=== PATIENT | female | born 1940 | race Caucasian/White ===

== ENCOUNTER 2021-10-18 15:46 | Inpatient (IN) ==
[2021-10-18 17:49] LABS: Basophils # (auto) 0.02 K/uL (0-0.2); Basophils % (auto) 0.3 %; Eosinophils # (auto) 0.11 K/uL (0-0.5); Eosinophils % (auto) 1.5 %; Hematocrit (blood only) 34.7 % (37-47); Immature Granulocytes # (auto) 0.02 K/uL (0.00-0.02); Immature Granulocytes % (auto) 0.3 %; Lymphocytes # (auto) 1.81 K/uL (1.2-3.4); Lymphocytes % (auto) 23.9 %; Mean Corpuscular Hemoglobin 31.8 pg (25-34); Mean Corpuscular Hgb Conc 34.6 g/dL (32-36); Mean Platelet Volume 10.3 fL (7.4-10.4); Monocytes # (auto) 0.74 K/uL (0.11-0.59); Monocytes % (auto) 9.8 %; Neutrophils # (auto) 4.87 K/uL (1.4-6.5); Neutrophils % (auto) 64.2 %; Platelet Count 261 K/uL (130-400); RDW Coefficient of Variation 13.2 % (11.5-14.5); RDW Standard Deviation 44.2 fL (36.4-46.3); Red Blood Count 3.77 M/uL (4.2-5.4); White Blood Count 7.57 K/uL (4.8-10.8)
[2021-10-18 18:55] LABS: Appearance Urine Clear (Clear); Bilirubin Urine Negative (Negative); Blood Urine Negative (Negative); Color Urine Yellow; Glucose Urine UA Negative (Negative); Ketones Urine Negative (Negative); Leukocyte Esterase Urine Negative (Negative); Nitrite Urine Negative (Negative); Protein Urine Negative (Negative); Specific Gravity Urine 1.008 (1.000-1.030); Urobilinogen Urine Negative (Negative); pH Urine 7.5 (4.5-7.5)
[2021-10-18 19:02] LABS: Alanine Aminotransferase 20 U/L (7-52); Albumin Globulin Ratio 1.1 (0.9-2); Albumin Level 3.5 gm/dl (3.4-5.0); Alkaline Phosphatase 82 U/L (34-104); Anion Gap 6 (3-11); BUN Creatinine Ratio 8.1 (10-20); Bilirubin,Total 0.7 mg/dl (0.2-1.0); Blood Urea Nitrogen 5 mg/dl (6-23); Calcium 8.9 mg/dl (8.5-10.1); Carbon Dioxide 27 mmol/L (21-32); Chloride 101 mmol/L (98-107); Creatinine Clr Calc Pharmacy 62.3 ml/min; Est GFR (African American) 99.4 ml/min; Est GFR (Non-African American) 85.8 ml/min; Globulin 3.1 gm/dl (2.5-4.0); Glucose 91 mg/dl (70-99(Fasting)); Lipase 15 U/L (11-82); Sodium 134 mmol/L (136-145); Total Protein 6.6 gm/dl (6.0-8.3)
[2021-10-18] MEDS ORDERED: OPTIRAY 320 100ml IV ONE (19:56)
[2021-10-18 20:19] LABS: Potassium 4.1 mmol/L (3.5-5.1)
--- NOTE | 2021-10-18 20:24 | CT Scan Report ---
CT SCAN OF THE ABDOMEN AND PELVIS WITH IV CONTRAST CLINICAL HISTORY: Generalized abdominal pain. Nausea and vomiting. Diarrhea. Reported history of co shane cancer. COMPARISON STUDY: No priors. TECHNIQUE: Following the IV administration of 94 cc of Optiray 320, CT scan of the abdomen and pelvi s is performed from the lung bases to the proximal femora. Images are reviewed in the axial, sagittal , and coronal planes. IV contrast was administered without complication. A dose lowering technique wa s utilized adhering to the principles of ALARA. CT DOSE: 291.06 mGy.cm FINDINGS: Lung bases: The heart is top normal in size and without pericardial effusion. There are coronary henrik ry calcifications. The lung bases are clear noting dependent atelectasis. Liver: The contrast-enhanced liver is normal in size, contour, and attenuation. There is no intrahepa tic biliary ductal dilatation. The hepatic veins and portal veins are patent. Gallbladder: Surgically absent noting clips in the gallbladder fossa. Spleen: Normal in size and attenuation. Pancreas: Moderately atrophic and grossly unremarkable. Adrenal glands: Unremarkable. Kidneys: The contrast enhanced kidneys are normal in size and without hydronephrosis. The kidneys enh ance symmetrically. There are least 2 nonobstructing right renal calculi which measure up to 6 mm. Abdominal vasculature: The abdominal aorta is normal in course and caliber noting mild to moderate at herosclerotic calcification. Bowel: There is postoperative change from right-sided colon resection with ileocolic anastomosis. The proximal small bowel loops are distended and fluid-filled measuring up to 3.0 cm. The distal small b owel is decompressed, and the appearance is consistent with a small bowel obstruction. There is likel y a transition point in the central pelvis above the bladder on image #330. This may be on the basis of adhesions. No focally thick walled bowel loops are identified. There is no pneumatosis intestinali s or portal venous gas. There is moderate colonic diverticulosis without CT evidence of acute diverti culitis. The appendix is not identified and may be surgically absent. Peritoneum: No intraperitoneal free air is identified. Trace interloop fluid is seen in the midabdome n and there is trace free fluid in the pelvis. A midline surgical scar is noted. Lymphadenopathy: There are enlarged and centrally necrotic-appearing mesenteric lymph nodes in the mi d to right lower quadrant. The largest node is seen on image #242 and measures 1.5 x 1.2 cm. Addition al nodes are seen on images #250, #251, and #256. Pelvic viscera: The bladder is mildly distended but otherwise normal in appearance. The uterus is trevor gically absent. No adnexal lesion is seen. Skeletal structures: The skeletal structures are heterogeneously osteopenic. There is mild lumbosacra l spondylosis. No lytic or blastic lesions are seen. IMPRESSION: 1. There is postoperative change from right-sided colon resection with ileocolic anastomosis. 2. Findings are consistent with a small bowel obstruction. A transition point is suspected in the pel vis and this is likely on the basis of adhesions. 3. There is trace interloop fluid and a small amount of free fluid in the pelvis. 4. No intraperitoneal free air is identified. There is no pneumatosis intestinalis or portal venous g as. 5. There are pathologically enlarged and centrally necrotic-appearing mesenteric lymph nodes in the l ower abdomen. These are pathologically indeterminant but concerning for metastatic disease given the patient's oncological history. Follow-up with the patient's oncologist is recommended. 6. Additional findings as above. ACT 112: Positive. There are findings on this exam that require communication between the performing entity and the patient following Patient Test Result Information Act ([place] Act 112) guidelines. Electronically signed by: Ilia Blandon M.D. 10/18/2021 8:22 PM
--- NOTE | 2021-10-18 20:38 | Emergency Department Note ---
History of Present Illness General Chief Complaint: Abdominal Pain Stated Complaint: ABDOMINAL PAIN, VOMITING, NAUSEA Time Seen by Provider: 10/18/21 18:59 History of Present Illness Provider Complaint: abdominal pain Onset (ago): 1 month(s) Pain Consistency: intermittent Location: diffuse Severity: moderate Maximum Pain Intensity: 5 Current Pain Intensity: 5 Quality: + stabbing, + aching, + sharp and + dull Relieved By: + nothing Exacerbated By: + nothing Context: + history of similar episodes (Patient states her symptoms have been going on for the last month and daughter states her symptoms have been on and off for the last 6 months since she had surgery a colectomy done at [facility] for colon cancer); no foreign travel, no possible food poisoning, no sick contacts, no recent antibiotic use or no recent injury Associated Symptoms: + nausea and + vomiting; no diarrhea, no fever, no chills, no constipation, no dysuria, no hematemesis, no hematochezia, no melena, no hematuria, no anorexia, no syncope, no headache, no neck pain, no back pain, no chest pain, no weakness, no breathing difficulty and no numbness Related Data Patient Confirmed : No Home Medications Medication Instructions Recorded Confirmed Type amoxicillin 875 mg-potassium 1 tab PO [facility] 10/18/21 10/18/21 History clavulanate 125 mg tablet cholestyramine (with sugar) 4 gram 1 ea PO [facility] 10/18/21 10/18/21 History powder for susp in a packet lisinopril 10 mg tablet 10 mg PO QAM 10/18/21 10/18/21 History magnesium oxide 400 mg (241.3 mg 400 mg PO Q12 10/18/21 10/18/21 History magnesium) tablet metoclopramide HCl 5 mg tablet 5 mg PO AC 10/18/21 10/18/21 History ondansetron 4 mg disintegrating 4 mg PO Q8 PRN 10/18/21 10/18/21 History tablet pantoprazole 40 mg tablet,delayed 40 mg PO QAM 10/18/21 10/18/21 History release potassium chloride 20 mEq 20 meq PO TIDM 10/18/21 10/18/21 History tablet,extended release(part/cryst) sucralfate 1 gram tablet 1 g PO QID 10/18/21 10/18/21 History Allergies Allergy/AdvReac Type Severity Reaction Status Date / Time No Known Allergies Allergy Unverified 10/18/21 22:13 Past Med/Surg History Medical History Colon cancer HTN (hypertension) Prolonged Q-T interval on ECG Surgical History H/O colectomy Social History Smoking Status: Former smoker Feels Safe at Home: Yes Review of Systems A total of 10 systems reviewed and were otherwise negative Physical Exam Vital Signs: Vital Signs - 24 hr 10/18/21 15:58 10/18/21 19:15 10/18/21 20:09 Temperature 36.7 C Temperature Source Temporal Artery Sc an Pulse Rate 80 Pulse Rate [Right] 78 64 Pulse Rhythm [Righ t] Regular Pulse Strength [Ri ght] Normal Respiratory Rate 20 18 16 Respiratory Effort / Characteristics Non-Labored Non-Labored Sponta neous Non-Labored Sponta neous Respiratory Depth Normal Normal Normal Blood Pressure 119/79 Blood Pressure [Ri ght Arm] 183/82 H 180/81 H Blood Pressure Veronica n 92 Blood Pressure Veronica n [Right Arm] 115 114 Blood Pressure Pos ition Sitting Blood Pressure Pos ition [Right Arm] Lying Pulse Oximetry 97 97 96 Oxygen Delivery Me thod Room Air Room Air Room Air Sepsis Recent Feve r Within 48 Hours No Sepsis New/Unexpla ined Change in Men payam Status N/A Sepsis Action Take n by Nursing No Action Required 10/18/21 22:26 Temperature Temperature Source Pulse Rate Pulse Rate [Right] 65 Pulse Rhythm [Righ t] Regular Pulse Strength [Ri ght] Normal Respiratory Rate 16 Respiratory Effort / Characteristics Non-Labored Sponta neous Respiratory Depth Normal Blood Pressure Blood Pressure [Ri ght Arm] 159/89 H Blood Pressure Veronica n Blood Pressure Veronica n [Right Arm] 112 Blood Pressure Pos ition Blood Pressure Pos ition [Right Arm] Sitting Pulse Oximetry 96 Oxygen Delivery Me thod Room Air Sepsis Recent Feve r Within 48 Hours Sepsis New/Unexpla ined Change in Men payam Status Sepsis Action Take n by Nursing Physical Exam: Physical Exam GENERAL: She is oriented to person, place, and time. She appears well-developed and well-nourished. She does not appear distressed. HENT: Exam performed. -Head: Normocephalic and atraumatic. -Right Ear: External ear normal. No mastoid tenderness. -Left Ear: External ear normal. No mastoid tenderness. -Mouth/Throat: The oropharynx is clear and moist. No trismus in the jaw. No dental abscesses or uvula swelling. No oropharyngeal exudate or tonsillar abscesses. EYES: Conjunctivae and EOM are normal. Pupils are equal, round, and reactive to light. Right eye exhibits no discharge. Left eye exhibits no discharge. No scleral icterus. NECK: Normal range of motion. Neck supple. No JVD present. No spinous process tenderness present. No carotid bruit present. No rigidity. No tracheal deviation and normal range of motion present. No Brudzinski's sign and no Kernig's sign noted. CV: Normal rate, regular rhythm, normal heart sounds and intact distal pulses. There is no peripheral edema. Palpable radial pulses bue. PULM/CHEST: Effort normal and breath sounds normal. No respiratory distress. No stridor. She has no wheezes. She has no rales. -Chest Wall: She exhibits no tenderness. ABD: The abdomen is soft. Bowel sounds are normal. She has no distension. No mass is present. There is diffuse tenderness to palpation there is no rebound, no guarding, no Powers's sign and no tenderness at McBurney's point. Rovsig negative MUSC/SKEL: Normal range of motion. There is no peripheral edema, tenderness or deformity. LYMPH: No cervical adenopathy. NEURO: She is alert and oriented to person, place, and time. She has normal strength. No cranial nerve deficit or sensory deficit. Coordination and gait normal. GCS eye subscore is 4. GCS verbal subscore is 5. GCS motor subscore is 6. Cerebellar tests wnl. SKIN: Skin is warm and dry. She is not diaphoretic. PSYCH: She has a normal mood and affect. Behavior is normal. Judgment and thought content normal. Course Course 1858: The patient was evaluated in room B2. A complete history and physical exam was performed Cardiac monitoring: An order was placed for continuous cardiac monitoring. The monitor shows a rate of 60 with sinus rhythm 0: Vital signs stable. Labs within normal limits. CT of the abdomen shows small bowel obstruction likely due to adhesions. There are also possible malignant lymph nodes. Discussed case with Dr. Diaz general surgery who states that the patient can be admitted to medicine here and they will be on consult. No plans for surgery and recommends bowel rest. No need for NG tube unless the patient has persistent vomiting. Patient be admitted to [facility] any hospitalist team Dr. Beck notified. Administered Medications Sodium Chloride (Nss 1000ml) 1,000 mls @ 80 mls/hr IV .[id number] [facility] Stop: 11/17/21 21:29 Last Admin: 10/18/21 21:37 Dose: 80 mls/hr Documented by: [id number] Discontinued Medications Ioversol (Optiray 320 100ml) 94 ml IV ONCE ONE Stop: 10/18/21 19:57 Last Admin: 10/18/21 19:58 Dose: 94 ml Documented by: [id number] Ondansetron HCl (Ondansetron Inj 2 Mg/Ml 2 Ml Vial) 4 mg IV NOW STA Stop: 10/18/21 22:15 Last Admin: 10/18/21 22:18 Dose: 4 mg Documented by: [id number] Medical Decision Making Laboratory Data Result diagrams: 10/18/21 17:30 10/18/21 19:38 Lab Results 10/18/21 10/18/21 10/18/21 Range/Units 17:15 17:30 17:30 WBC 7.57 (4.8-10.8) K/uL RBC 3.77 L (4.2-5.4) M/uL Hgb 12.0 (12.0-16.0) g/dL Hct 34.7 L (37-47) % MCV 92.0 (80-100) fL MCH 31.8 (25-34) pg MCHC 34.6 (32-36) g/dL RDW Std Deviation 44.2 (36.4-46.3) fL RDW Coeff of Slava 13.2 (11.5-14.5) % Plt Count 261 (130-400) K/uL MPV 10.3 (7.4-10.4) fL Immature Gran % (Auto) 0.3 % Neut % (Auto) 64.2 % Lymph % (Auto) 23.9 % Amador % (Auto) 9.8 % Eos % (Auto) 1.5 % Baso % (Auto) 0.3 % Neut # (Auto) 4.87 (1.4-6.5) K/uL Lymph # (Auto) 1.81 (1.2-3.4) K/uL Amador # (Auto) 0.74 H (0.11-0.59) K/uL Eos # (Auto) 0.11 (0-0.5) K/uL Baso # (Auto) 0.02 (0-0.2) K/uL Immature Gran # (Auto) 0.02 (0.00-0.02) K/uL Sodium 134 L (136-145) mmol/L Potassium TNP Chloride 101 (98-107) mmol/L Carbon Dioxide 27 (21-32) mmol/L Anion Gap 6 (3-11) BUN 5 L (6-23) mg/dl Creatinine 0.62 (0.6-1.2) mg/dl Est Cr Clr Drug Dosing 62.3 ml/min Est GFR ( Amer) 99.4 ml/min Est GFR (Non-Af Amer) 85.8 ml/min BUN/Creatinine Ratio 8.1 L (10-20) Glucose 91 (70-99(Fasting)) mg/dl Calcium 8.9 (8.5-10.1) mg/dl Total Bilirubin 0.7 (0.2-1.0) mg/dl AST TNP ALT 20 (7-52) U/L Alkaline Phosphatase 82 (34-104) U/L Total Protein 6.6 (6.0-8.3) gm/dl Albumin 3.5 (3.4-5.0) gm/dl Globulin 3.1 (2.5-4.0) gm/dl Albumin/Globulin Ratio 1.1 (0.9-2) Lipase 15 (11-82) U/L Urine Color Yellow Urine Appearance Clear (Clear) Urine pH 7.5 (4.5-7.5) Ur Specific [place] 1.008 (1.000-1.030) Urine Protein Negative (Negative) Urine Glucose (UA) Negative (Negative) Urine Ketones Negative (Negative) Urine Blood Negative (Negative) Urine Nitrite Negative (Negative) Urine Bilirubin Negative (Negative) Urine Urobilinogen Negative (Negative) Ur Leukocyte Esterase Negative (Negative) SARS-CoV-2, RNA, NAAT (NEGATIVE) 10/18/21 10/18/21 Range/Units 19:38 20:40 WBC (4.8-10.8) K/uL RBC (4.2-5.4) M/uL Hgb (12.0-16.0) g/dL Hct (37-47) % MCV (80-100) fL MCH (25-34) pg MCHC (32-36) g/dL RDW Std Deviation (36.4-46.3) fL RDW Coeff of Slava (11.5-14.5) % Plt Count (130-400) K/uL MPV (7.4-10.4) fL Immature Gran % (Auto) % Neut % (Auto) % Lymph % (Auto) % Amador % (Auto) % Eos % (Auto) % Baso % (Auto) % Neut # (Auto) (1.4-6.5) K/uL Lymph # (Auto) (1.2-3.4) K/uL Amador # (Auto) (0.11-0.59) K/uL Eos # (Auto) (0-0.5) K/uL Baso # (Auto) (0-0.2) K/uL Immature Gran # (Auto) (0.00-0.02) K/uL Sodium (136-145) mmol/L Potassium 4.1 Chloride (98-107) mmol/L Carbon Dioxide (21-32) mmol/L Anion Gap (3-11) BUN (6-23) mg/dl Creatinine (0.6-1.2) mg/dl Est Cr Clr Drug Dosing ml/min Est GFR ( Amer) ml/min Est GFR (Non-Af Amer) ml/min BUN/Creatinine Ratio (10-20) Glucose (70-99(Fasting)) mg/dl Calcium (8.5-10.1) mg/dl Total Bilirubin (0.2-1.0) mg/dl AST 19 ALT (7-52) U/L Alkaline Phosphatase (34-104) U/L Total Protein (6.0-8.3) gm/dl Albumin (3.4-5.0) gm/dl Globulin (2.5-4.0) gm/dl Albumin/Globulin Ratio (0.9-2) Lipase (11-82) U/L Urine Color Urine Appearance (Clear) Urine pH (4.5-7.5) Ur Specific [place] (1.000-1.030) Urine Protein (Negative) Urine Glucose (UA) (Negative) Urine Ketones (Negative) Urine Blood (Negative) Urine Nitrite (Negative) Urine Bilirubin (Negative) Urine Urobilinogen (Negative) Ur Leukocyte Esterase (Negative) SARS-CoV-2, RNA, NAAT NEGATIVE (NEGATIVE) Imaging Data Radiologist's Impression: Abdomen/Pelvis CT 10/18/21 19:04 CT SCAN OF THE ABDOMEN AND PELVIS WITH IV CONTRAST CLINICAL HISTORY: Generalized abdominal pain. Nausea and vomiting. Diarrhea. Reported history of colon cancer. COMPARISON STUDY: No priors. TECHNIQUE: Following the IV administration of 94 cc of Optiray 320, CT scan of the abdomen and pelvis is performed from the lung bases to the proximal femora. Images are reviewed in the axial, sagittal, and coronal planes. IV contrast was administered without complication. A dose lowering technique was utilized adhering to the principles of ALARA. CT DOSE: 291.06 mGy.cm FINDINGS: Lung bases: The heart is top normal in size and without pericardial effusion. There are coronary artery calcifications. The lung bases are clear noting dependent atelectasis. Liver: The contrast-enhanced liver is normal in size, contour, and attenuation. There is no intrahepatic biliary ductal dilatation. The hepatic veins and portal veins are patent. Gallbladder: Surgically absent noting clips in the gallbladder fossa. Spleen: Normal in size and attenuation. Pancreas: Moderately atrophic and grossly unremarkable. Adrenal glands: Unremarkable. Kidneys: The contrast enhanced kidneys are normal in size and without hydronephrosis. The kidneys enhance symmetrically. There are least 2 nonobstructing right renal calculi which measure up to 6 mm. Abdominal vasculature: The abdominal aorta is normal in course and caliber noting mild to moderate atherosclerotic calcification. Bowel: There is postoperative change from right-sided colon resection with ileoc olic anastomosis. The proximal small bowel loops are distended and fluid-filled measuring up to 3.0 cm. The distal small bowel is decompressed, and the appearance is consistent with a small bowel obstruction. There is likely a transition point in the central pelvis above the bladder on image #330. This may be on the basis of adhesions. No focally thick walled bowel loops are identified. There is no pneumatosis intestinalis or portal venous gas. There is moderate colonic diverticulosis without CT evidence of acute diverticulitis. The appendix is not identified and may be surgically absent. Peritoneum: No intraperitoneal free air is identified. Trace interloop fluid is seen in the midabdomen and there is trace free fluid in the pelvis. A midline surgical scar is noted. Lymphadenopathy: There are enlarged and centrally necrotic-appearing mesenteric lymph nodes in the mid to right lower quadrant. The largest node is seen on image #242 and measures 1.5 x 1.2 cm. Additional nodes are seen on images #250, #251, and #256. Pelvic viscera: The bladder is mildly distended but otherwise normal in appearance. The uterus is surgically absent. No adnexal lesion is seen. Skeletal structures: The skeletal structures are heterogeneously osteopenic. There is mild lumbosacral spondylosis. No lytic or blastic lesions are seen. IMPRESSION: 1. There is postoperative change from right-sided colon resection with ileocolic anastomosis. 2. Findings are consistent with a small bowel obstruction. A transition point is suspected in the pelvis and this is likely on the basis of adhesions. 3. There is trace interloop fluid and a small amount of free fluid in the pelvis. 4. No intraperitoneal free air is identified. There is no pneumatosis intestinalis or portal venous gas. 5. There are pathologically enlarged and centrally necrotic-appearing mesenteric lymph nodes in the lower abdomen. These are pathologically indeterminant but concerning for metastatic disease given the patient's oncological history. Follow-up with the patient's oncologist is recommended. 6. Additional findings as above. ACT 112: Positive. There are findings on this exam that require communication between the performing entity and the patient following Patient Test Result Information Act ([place] Act 112) guidelines. Electronically signed by: Ilia Blandon M.D. 10/18/2021 8:22 PM MDM Narrative Vital signs stable. Labs within normal limits. CT of the abdomen shows small bowel obstruction likely due to adhesions. There are also possible malignant lymph nodes. Discussed case with Dr. Diaz general surgery who states that t he patient can be admitted to medicine here and they will be on consult. No plans for surgery and recommends bowel rest. No need for NG tube unless the patient has persistent vomiting. Patient be admitted to [facility] any hospitalist team Dr. Beck notified. Impression & Plan Small bowel obstruction Discharge Plan Visit Data Chief Complaint: Abdominal Pain Stated Complaint: ABDOMINAL PAIN, VOMITING, NAUSEA ED Provider: Chele Talbert Discharge Problem: Small bowel obstruction Patient Disposition: Admitted As Inpatient Forms Stand Alone Forms: My [facility] Prescriptions Prescriptions: No Action sucralfate 1 gram tablet 1 g PO QID RF: 0 potassium chloride 20 mEq tablet,ER particles/crystals 20 meq PO TIDM RF: 0 magnesium oxide 400 mg (241.3 mg magnesium) tablet 400 mg PO Q12 RF: 0 metoclopramide HCl 5 mg Tablet 5 mg PO AC RF: 0 pantoprazole 40 mg tablet,delayed release (DR/EC) 40 mg PO QAM RF: 0 lisinopril 10 mg tablet 10 mg PO QAM RF: 0 ondansetron 4 mg tablet,disintegrating 4 mg PO Q8 PRN (Reason: Nausea And Vomiting) RF: 0 amoxicillin-pot clavulanate 875-125 mg tablet 1 tab PO [facility] RF: 0 cholestyramine (with sugar) 4 gram powder in packet 1 ea PO [facility] RF: 0 Referrals Referrals: Jerilyn Arroyo CRNP [Primary Care Provider] -
[2021-10-18] MEDS ORDERED: SODIUM CHLORIDE 0.9% 1000ML 1,000 ML IV SCH (21:30)
--- NOTE | 2021-10-18 22:00 | History & Physical Report ---
Date of Service October 18, 2021 Assessment & Plan (1) Small bowel obstruction: Plan: Small bowel obstruction thought likely secondary to adhesions NPO Zofran 4 mg IV every 6 hours as needed Zosyn 4.5 g IV every 8 hours Famotidine 20 mg IV every 12 hours LR at 80 mils per hour Acetaminophen 1 g IV every 8 hours as needed for mild pain or fever No NG tube at this time Consult general surgery is already aware and notified by the ED (2) HTN (hypertension): Plan: Holding lisinopril Hydralazine 10 mg IV every 4 hours as needed systolic blood pressure greater than 160 (3) GERD (gastroesophageal reflux disease): Plan: Holding oral Protonix Famotidine 20 mg IV every 12 hours (4) Hypokalemia: Plan: Potassium 4.1 upon admission Placed on IV fluids and follow laboratory serially (5) Colonic dysmotility: Plan: Holding metoclopramide due to bowel obstruction and n.p.o. status (6) Colon cancer: Plan: CT with pathologically enlarged and centrally necrotic appearing mesenteric lymph nodes in the lower abdomen, concerning for metastatic disease. Patient follows with oncology Dr. Miller at [facility] History of Present Illness Chief Complaint: Patient presents to the emergency department with recurrent abdominal pain, nausea and vomiting, that began after eating a piece of toast this morning for breakfast Primary Care Provider: MARISSA Patel The patient is a 80-year-old female with a past medical history significant for colon cancer and colectomy, GERD, hypertension, hypokalemia who has had recurrent symptoms as noted above off and on over the past 6 months. She was recently admitted to [facility], where she was discharged a few days ago, and due to recurrence of symptoms, is presented to the need for further assessment. Abnormal laboratories: Hemoglobin 12.0, hematocrit 34.7. CT scan of the abdomen pelvis: Right-sided colon resection with ileocolic anastomosis. Findings consistent with small bowel obstruction with transition point suspected in the pelvis and likely on the basis of adhesions. There is trace interloop fluid and a small amount of free fluid in the pelvis. No intraluminal free air is identified. No pneumatosis intestinalis or portal venous gas. There are pathologically enlarged and centrally necrotic appearing mesenteric lymph nodes in the lower abdomen. These are pathologically indeterminate, but concerning for metastatic disease given the patient's oncologic history Patient is referred for admission to the [facility] hospitalist service with general surgery consult. Allergies Allergy/AdvReac Type Severity Reaction Status Date / Time No Known Allergies Allergy Unverified 10/18/21 22:13 Home Medications Medication Instructions Recorded Confirmed Type amoxicillin 875 mg-potassium 1 tab PO AMHS 10/18/21 10/18/21 History clavulanate 125 mg tablet cholestyramine (with sugar) 4 gram 1 ea PO AMHS 10/18/21 10/18/21 History powder for susp in a packet lisinopril 10 mg tablet 10 mg PO QAM 10/18/21 10/18/21 History magnesium oxide 400 mg (241.3 mg 400 mg PO Q12 10/18/21 10/18/21 History magnesium) tablet metoclopramide HCl 5 mg tablet 5 mg PO AC 10/18/21 10/18/21 History ondansetron 4 mg disintegrating 4 mg PO Q8 PRN 10/18/21 10/18/21 History tablet pantoprazole 40 mg tablet,delayed 40 mg PO QAM 10/18/21 10/18/21 History release potassium chloride 20 mEq 20 meq PO TIDM 10/18/21 10/18/21 History tablet,extended release(part/cryst) sucralfate 1 gram tablet 1 g PO QID 10/18/21 10/18/21 History Past Med/Surg History Medical History (Updated 10/19/21 @ 00:19 by Aryan Guillory MD) Colon cancer Colonic dysmotility GERD (gastroesophageal reflux disease) HTN (hypertension) Hypokalemia Prolonged Q-T interval on ECG Surgical History H/O colectomy Social History Smoking Status: Former smoker Feels Safe at Home: Yes Review of Systems Review of Systems: The patient denies chest pain, palpitations, shortness of breath, dyspnea on exertion, cough, lower extremity swelling, sore throat, fevers, chills, sweats, blood in urine or stool, dysuria, urinary frequency or urgency, lightheadedness, dizziness, headache, memory loss, loss of consciousness, rash, abnormal bruising or bleeding, imbalance, focal or generalized weakness, numbness or tingling in arms or legs, generalized arthralgias or myalgias, back or neck pain, or night sweats. The review of systems is otherwise negative other than for that already noted above, and at least 10 systems have been reviewed. Physical Exam Physical Exam: The patient is awake, alert and oriented 3, well developed and well nourished, normocephalic and atraumatic, lying in bed and in no acute distress. HEENT--PERRL, EOMI, mucous membranes and oropharynx dry. Neck--supple. No JVD. No bruits. Thyroid normal, trachea midline, no adenopathy. Heart--normal S1 and S2. No murmurs, rubs or gallops. Lungs--clear bilaterally, no respiratory distress, no accessory muscle use. Abdomen--absent bowel sounds. Mildly firm and and distended. Nontender. Extremities--no cyanosis or clubbing. No edema. Dermatologic--normal skin turgor, normal color, no abnormal lymph nodes, no rash. Neurologic--cranial nerves II through XII grossly intact. Rheumatologic--normal range of motion. Psychiatric--normal affect. Results & Data Results & Data ([facility]) Vital Signs (Past 12 Hours) Vital Signs Temp Pulse Pulse Resp BP BP Pulse Ox 10/18/21 20:09 64 16 180/81 H 96 10/18/21 19:15 78 18 183/82 H 97 10/18/21 15:58 36.7 C 80 20 119/79 97 Laboratory Results Laboratory Results WBC 7.57 K/uL (4.8-10.8) 10/18/21 17:30 RBC 3.77 M/uL (4.2-5.4) L 10/18/21 17:30 Hgb 12.0 g/dL (12.0-16.0) 10/18/21 17:30 Hct 34.7 % (37-47) L 10/18/21 17:30 MCV 92.0 fL (80-100) 10/18/21 17:30 MCH 31.8 pg (25-34) 10/18/21 17:30 MCHC 34.6 g/dL (32-36) 10/18/21 17:30 RDW Std Deviation 44.2 fL (36.4-46.3) 10/18/21 17:30 RDW Coeff of Slava 13.2 % (11.5-14.5) 10/18/21 17:30 Plt Count 261 K/uL (130-400) 10/18/21 17:30 MPV 10.3 fL (7.4-10.4) 10/18/21 17:30 Immature Gran % (Auto) 0.3 % 10/18/21 17:30 Neut % (Auto) 64.2 % 10/18/21 17:30 Lymph % (Auto) 23.9 % 10/18/21 17:30 [place] % (Auto) 9.8 % 10/18/21 17:30 Eos % (Auto) 1.5 % 10/18/21 17:30 Baso % (Auto) 0.3 % 10/18/21 17:30 Neut # (Auto) 4.87 K/uL (1.4-6.5) 10/18/21 17:30 Lymph # (Auto) 1.81 K/uL (1.2-3.4) 10/18/21 17:30 [place] # (Auto) 0.74 K/uL (0.11-0.59) H 10/18/21 17:30 Eos # (Auto) 0.11 K/uL (0-0.5) 10/18/21 17:30 Baso # (Auto) 0.02 K/uL (0-0.2) 10/18/21 17:30 Immature Gran # (Auto) 0.02 K/uL (0.00-0.02) 10/18/21 17:30 Sodium 134 mmol/L (136-145) L 10/18/21 17:30 Potassium 4.1 mmol/L (3.5-5.1) 10/18/21 19:38 Chloride 101 mmol/L (98-107) 10/18/21 17:30 Carbon Dioxide 27 mmol/L (21-32) 10/18/21 17:30 Anion Gap 6 (3-11) 10/18/21 17:30 BUN 5 mg/dl (6-23) L 10/18/21 17:30 Creatinine 0.62 mg/dl (0.6-1.2) 10/18/21 17:30 Est Cr Clr Drug Dosing 62.3 ml/min 10/18/21 17:30 Est GFR ( Amer) 99.4 ml/min 10/18/21 17:30 Est GFR (Non-Af Amer) 85.8 ml/min 10/18/21 17:30 BUN/Creatinine Ratio 8.1 (10-20) L 10/18/21 17:30 Glucose 91 mg/dl (70-99(Fasting)) 10/18/21 17:30 Calcium 8.9 mg/dl (8.5-10.1) 10/18/21 17:30 Total Bilirubin 0.7 mg/dl (0.2-1.0) 10/18/21 17:30 AST 19 U/L (13-39) 10/18/21 19:38 ALT 20 U/L (7-52) 10/18/21 17:30 Alkaline Phosphatase 82 U/L (34-104) 10/18/21 17:30 Total Protein 6.6 gm/dl (6.0-8.3) 10/18/21 17:30 Albumin 3.5 gm/dl (3.4-5.0) 10/18/21 17:30 Globulin 3.1 gm/dl (2.5-4.0) 10/18/21 17:30 Albumin/Globulin Ratio 1.1 (0.9-2) 10/18/21 17:30 Lipase 15 U/L (11-82) 10/18/21 17:30 Urine Color Yellow 10/18/21 17:15 Urine Appearance Clear (Clear) 10/18/21 17:15 Urine pH 7.5 (4.5-7.5) 10/18/21 17:15 Ur Specific [place] 1.008 (1.000-1.030) 10/18/21 17:15 Urine Protein Negative (Negative) 10/18/21 17:15 Urine Glucose (UA) Negative (Negative) 10/18/21 17:15 Urine Ketones Negative (Negative) 10/18/21 17:15 Urine Blood Negative (Negative) 10/18/21 17:15 Urine Nitrite Negative (Negative) 10/18/21 17:15 Urine Bilirubin Negative (Negative) 10/18/21 17:15 Urine Urobilinogen Negative (Negative) 10/18/21 17:15 Ur Leukocyte Esterase Negative (Negative) 10/18/21 17:15 SARS-CoV-2, RNA, NAAT NEGATIVE (NEGATIVE) 10/18/21 20:40 Impressions Abdomen/Pelvis CT 10/18/21 19:04 CT SCAN OF THE ABDOMEN AND PELVIS WITH IV CONTRAST CLINICAL HISTORY: Generalized abdominal pain. Nausea and vomiting. Diarrhea. Reported history of colon cancer. COMPARISON STUDY: No priors. TECHNIQUE: Following the IV administration of 94 cc of Optiray 320, CT scan of the abdomen and pelvis is performed from the lung bases to the proximal femora. Images are reviewed in the axial, sagittal, and coronal planes. IV contrast was administered without complication. A dose lowering technique was utilized adhering to the principles of ALARA. CT DOSE: 291.06 mGy.cm FINDINGS: Lung bases: The heart is top normal in size and without pericardial effusion. There are coronary artery calcifications. The lung bases are clear noting dependent atelectasis. Liver: The contrast-enhanced liver is normal in size, contour, and attenuation. There is no intrahepatic biliary ductal dilatation. The hepatic veins and portal veins are patent. Gallbladder: Surgically absent noting clips in the gallbladder fossa. Spleen: Normal in size and attenuation. Pancreas: Moderately atrophic and grossly unremarkable. Adrenal glands: Unremarkable. Kidneys: The contrast enhanced kidneys are normal in size and without hydronephrosis. The kidneys enhance symmetrically. There are least 2 nonobstructing right renal calculi which measure up to 6 mm. Abdominal vasculature: The abdominal aorta is normal in course and caliber noting mild to moderate atherosclerotic calcification. Bowel: There is postoperative change from right-sided colon resection with ileocolic anastomosis. The proximal small bowel loops are distended and fluid- filled measuring up to 3.0 cm. The distal small bowel is decompressed, and the appearance is consistent with a small bowel obstruction. There is likely a transition point in the central pelvis above the bladder on image #330. This may be on the basis of adhesions. No focally thick walled bowel loops are identified. There is no pneumatosis intestinalis or portal venous gas. There is moderate colonic diverticulosis without CT evidence of acute diverticulitis. The appendix is not identified and may be surgically absent. Peritoneum: No intraperitoneal free air is identified. Trace interloop fluid is seen in the midabdomen and there is trace free fluid in the pelvis. A midline surgical scar is noted. Lymphadenopathy: There are enlarged and centrally necrotic-appearing mesenteric lymph nodes in the mid to right lower quadrant. The largest node is seen on image #242 and measures 1.5 x 1.2 cm. Additional nodes are seen on images #250, #251, and #256. Pelvic viscera: The bladder is mildly distended but otherwise normal in appearance. The uterus is surgically absent. No adnexal lesion is seen. Skeletal structures: The skeletal structures are heterogeneously osteopenic. There is mild lumbosacral spondylosis. No lytic or blastic lesions are seen. IMPRESSION: 1. There is postoperative change from right-sided colon resection with ileocolic anastomosis. 2. Findings are consistent with a small bowel obstruction. A transition point is suspected in the pelvis and this is likely on the basis of adhesions. 3. There is trace interloop fluid and a small amount of free fluid in the pelvis. 4. No intraperitoneal free air is identified. There is no pneumatosis intestinalis or portal venous gas. 5. There are pathologically enlarged and centrally necrotic-appearing mesenteric lymph nodes in the lower abdomen. These are pathologically indeterminant but concerning for metastatic disease given the patient's oncological history. Follow-up with the patient's oncologist is recommended. 6. Additional findings as above. ACT 112: Positive. There are findings on this exam that require communication between the performing entity and the patient following Patient Test Result Information Act ([place] Act 112) guidelines. Electronically signed by: Ilia Blandon M.D. 10/18/2021 8:22 PM Code Status & VTE Plan Code Status Full code VTE Prophylaxis Plan VTE Prophylaxis will be ordered: Yes PG Care Time/CCT Total # of Minutes Spent Total Time Spent with Patient: Total time spent is greater than 50% in coordination of care (as documented) at patient's floor/unit and/or counseling patient: Coding Level of Care Code 76113 Initial Inpt Care Lvl 3 Diagnoses Small bowel obstruction K56.609 HTN (hypertension) I10 GERD (gastroesophageal reflux disease) K21.9 Hypokalemia E87.6 Colonic dysmotility K59.9 Colon cancer C18.9
[2021-10-18] MEDS ORDERED: ONDANSETRON INJ 2 MG/ML 2 ML VIAL IV STA (22:14)
[2021-10-18] MEDS ORDERED: ACETAMINOPHEN 1,000 MG/100 ML VIAL IV PRN (23:10)
[2021-10-18] MEDS ORDERED: hydrALAZINE HCL 20 MG/ML VIAL IV PRN (23:10)
[2021-10-18] MEDS ORDERED: PIPERACILLIN/TAZOBACTAM 4.5 GM in DEXTROSE 5% 100 ML IV ONE (23:30)
[2021-10-18] MEDS: LACTATED RINGER'S 1,000 ML IV SCH (23:39)
[2021-10-19] MEDS: FAMOTIDINE 20 MG in SYRINGE 3 ML IV SCH ×3 (00:12→21:45)
[2021-10-19] MEDS: ONDANSETRON INJ 2 MG/ML 2 ML VIAL IV PRN ×2 (03:39→11:57)
[2021-10-19 06:18] LABS: Basophils # (auto) 0.02 K/uL (0-0.2); Basophils % (auto) 0.3 %; Eosinophils # (auto) 0.04 K/uL (0-0.5); Eosinophils % (auto) 0.5 %; Hematocrit (blood only) 33.7 % (37-47); Hemoglobin 11.6 g/dL (12.0-16.0); Immature Granulocytes # (auto) 0.02 K/uL (0.00-0.02); Immature Granulocytes % (auto) 0.3 %; Lymphocytes % (auto) 21.5 %; Mean Corpuscular Hemoglobin 31.1 pg (25-34); Mean Corpuscular Hgb Conc 34.4 g/dL (32-36); Mean Corpuscular Volume 90.3 fL (80-100); Mean Platelet Volume 9.8 fL (7.4-10.4); Monocytes # (auto) 0.71 K/uL (0.11-0.59); Monocytes % (auto) 9.6 %; Neutrophils # (auto) 5.04 K/uL (1.4-6.5); Neutrophils % (auto) 67.8 %; Platelet Count 266 K/uL (130-400); RDW Coefficient of Variation 13.4 % (11.5-14.5); RDW Standard Deviation 43.8 fL (36.4-46.3); Red Blood Count 3.73 M/uL (4.2-5.4); White Blood Count 7.43 K/uL (4.8-10.8)
[2021-10-19] MEDS: PIPERACILLIN/TAZOBACTAM 3.375 GM in DEXTROSE 5% 100 ML IV SCH ×3 (06:23→21:45)
[2021-10-19 06:52] LABS: Albumin Globulin Ratio 1.2 (0.9-2); Albumin Level 3.3 gm/dl (3.4-5.0); Bilirubin,Total 0.8 mg/dl (0.2-1.0); Calcium 8.4 mg/dl (8.5-10.1); Creatinine Clr Calc Pharmacy 65.4 ml/min; Est GFR (African American) 100.5 ml/min; Est GFR (Non-African American) 86.7 ml/min; Globulin 2.7 gm/dl (2.5-4.0); Potassium 3.9 mmol/L (3.5-5.1)
[2021-10-19] MEDS: HEPARIN SOD 5,000 UNIT/0.5 ML VIAL SQ SCH ×2 (09:01→21:43)
--- NOTE | 2021-10-19 09:10 | Electrocardiogram Report ---
Test Reason : Blood Pressure : / mmHG Vent. Rate : 066 BPM Atrial Rate : 066 BPM P-R Int : 160 ms QRS Dur : 098 ms QT Int : 452 ms P-R-T Axes : -17 075 049 degrees QTc Int : 473 ms Normal sinus rhythm Incomplete right bundle branch block Borderline ECG No previous ECGs available Confirmed by Andre Zheng ([id number]) on 10/19/2021 9:10:36 AM Referred By: REFERRED SELF Confirmed By:Andre Zheng
--- NOTE | 2021-10-19 09:53 | Electrocardiogram Report ---
Test Reason : Blood Pressure : / mmHG Vent. Rate : 072 BPM Atrial Rate : 072 BPM P-R Int : 158 ms QRS Dur : 102 ms QT Int : 460 ms P-R-T Axes : 000 174 060 degrees QTc Int : 503 ms Sinus rhythm with Premature atrial complexes Incomplete right bundle branch block Right ventricular hypertrophy Prolonged QT Abnormal ECG When compared with ECG of 18-OCT-2021 20:41, Premature atrial complexes are now Present Confirmed by Andre Zheng ([id number]) on 10/19/2021 9:53:44 AM Referred By: REFERRED SELF Confirmed By:Andre Zheng
--- NOTE | 2021-10-19 11:30 | Surgery Consultation ---
Date of Consultation October 19, 2021 Assessment & Plan (1) Small bowel obstruction: No acute abdominal findings Recurrent PSBO, transition in pelvis was eating high fiber at home apparently had SBFT last week, obtain records from [facility] continue NPO, IVF and for now can hold on NG Supervising Physician Co-Signing Physician Notes Patient seen and examined, labs and imaging reviewed, agree with above. 80 y/o female with history of right hemicolectomy for colon cancer in April at [facility], recently admitted with sbo x 2 over past few weeks, now here with sbo. on exam she is afvss, nad, aaox3. abd soft, mildly ttp, no guarding, no hernia. labs unremarkable. CT personally reviewed with partial sbo in lower abdomen, and some enlarged lymph nodes concerning for mets. Will obtain records from outside hospital, continue non operative management, consider NG tube and possible contrasted study if no improvement. Will need outpatient follow up with onc to workup nodes. Surgery will follow. History of Present Illness Attending Physician: César Dawson MD History of Present Illness 80 y/o female with bloating, N/V that began on Monday after discharge from [facility] on Monday for recurrent SBO. She was tolerating diet while admitted, went home and had mashed potatoes and sauerkraut. This was second admission there recently for SBO. She had right partial colectomy (ileocecectomy?) on Apr 26 and was doing well until a few weeks ago. Had hysterectomy around 1989. Allergies Allergy/AdvReac Type Severity Reaction Status Date / Time No Known Allergies Allergy Unverified 10/18/21 22:13 Home Medications Medication Instructions Recorded Confirmed Type amoxicillin 875 mg-potassium 1 tab PO AMHS 10/18/21 10/18/21 History clavulanate 125 mg tablet cholestyramine (with sugar) 4 gram 1 ea PO AMHS 10/18/21 10/18/21 History powder for susp in a packet lisinopril 10 mg tablet 10 mg PO QAM 10/18/21 10/18/21 History magnesium oxide 400 mg (241.3 mg 400 mg PO Q12 10/18/21 10/18/21 History magnesium) tablet metoclopramide HCl 5 mg tablet 5 mg PO AC 10/18/21 10/18/21 History ondansetron 4 mg disintegrating 4 mg PO Q8 PRN 10/18/21 10/18/21 History tablet pantoprazole 40 mg tablet,delayed 40 mg PO QAM 10/18/21 10/18/21 History release potassium chloride 20 mEq 20 meq PO TIDM 10/18/21 10/18/21 History tablet,extended release(part/cryst) sucralfate 1 gram tablet 1 g PO QID 10/18/21 10/18/21 History Patient History Medical History Colon cancer Colonic dysmotility GERD (gastroesophageal reflux disease) HTN (hypertension) Hypokalemia Prolonged Q-T interval on ECG Surgical History H/O colectomy Social History Smoking Status: Former smoker Hx Alcohol Use: No Hx Substance Use: No Preferred Language: Nigerian Communication Ability: Effective Ladies[employer]ocker Room Attendant Required: No Beliefs That Will Affect Care: None Current Living Situation: Alone and Family Current Living Situation Comment: Lives alone, daughter lives next door. Separate units Feels Safe at Home: Yes Assistive Devices: Denture - Upper, Denture - Lower, Glasses and Hearing Aid - Bilateral Assistive Devices Comment: glasses and dentures here in hospital with patient. Review of Systems Constitutional: no fever and no chills Gastrointestinal: + abdominal pain, + bloating, + nausea, + vomiting and + change in bowel habits (had BM at home over the weekend); no constipation and no diarrhea/loose stools Physical Exam Constitutional: WD/WN, vitals as above ENMT: does not have NG Respiratory: normal respiratory effort Cardiovascular: Rate/Rhythm: regular rate Gastrointestinal (Abdomen): Inspection/Auscultation: + abdominal surgical scar (midline/periumbilical); abdomen not distended Percussion/Palpation: abdomen soft; abdomen nontender Results & Data ([facility]) Vital Signs (Past 12 Hours) Vital Signs Temp Pulse Pulse Resp BP Pulse Ox 10/19/21 08:01 68 10/19/21 07:37 37.2 C 63 18 116/71 94 10/19/21 04:14 37.3 C 80 20 138/97 96 10/19/21 02:28 37.2 C 63 18 102/82 96 PG Care Time/CCT Total # of Minutes Spent Total Time Spent with Patient: Total time spent is greater than 50% in coordination of care (as documented) at patient's floor/unit and/or counseling patient: Coding Level of Care Code 02403 Initial Inpt Care Lvl 1 Diagnoses Small bowel obstruction K56.609
[2021-10-19] MEDS: LACTATED RINGER'S 1,000 ML IV SCH (12:10)
[2021-10-19] MEDS ORDERED: MoRPHine SULFATE 4 MG/ML 1 ML CARP\\VIAL IV PRN (12:45)
[2021-10-19] MEDS ORDERED: ACETAMINOPHEN 1,000 MG/100 ML VIAL IV PRN (12:46)
[2021-10-19] MEDS ORDERED: CHLORASEPTIC 1.4% SOLN 180 ML BTL MT PRN (12:47)
[2021-10-19] MEDS ORDERED: LIDOCAINE VISCOUS 2% 15 ML UDC TOP ONE (12:47)
--- NOTE | 2021-10-19 13:27 | Hospitalist Progress Note ---
Date of Service October 19, 2021 Assessment & Plan (1) Small bowel obstruction: Plan: Small bowel obstruction thought likely secondary to adhesions from prior colectomy. Surgery was in April at [facility]. Had one recent admission for SBO at [facility]. - NPO - NG tube inserted on 10/19 for continued pain, bloating, and nausea. - Continue pain control and nausea control - IV fluids while NPO (2) Colon cancer: Plan: CT a/p on admission with pathologically enlarged and centrally necrotic appearing mesenteric lymph nodes in the lower abdomen, concerning for metastatic disease. Patient follows with oncology Dr. Miller at [facility]. - Discussed with daughter - Per daughter, Dr. Miller is "very optimistic" about cancer and was not even recommending chemotherapy. The patient had a CT scan at [facility] last week during her admission for SBO, but daughter is not sure of last imaging from oncologist. - Will get CEA with AM labs (3) HTN (hypertension): Plan: BP today is 135/65. - Hold lisinopril - Hydralazine IV PRN for high BP (4) GERD (gastroesophageal reflux disease): Plan: - Hold oral Protonix - Continue famotidine IV (5) Colonic dysmotility: Plan: - Holding metoclopramide due to bowel obstruction and n.p.o. status (6) DVT prophylaxis: Plan: Heparin 5,000 units SQ BID Admission and Anticipated Discharge Date Admission Date: October 18, 2021 Subjective Still uncomfortable today. Having pressure in the abdomen, nausea, and some dry heaving. Reports no fevers/chills, chest pain, shortness of breath. Physical Exam Constitutional: WD/WN, vitals as above Eyes: EOM intact bilaterally; no conjunctival abnormality ENMT: external ear and nose normal, oropharynx normal Neck: trachea midline, no thyromegaly normal visual inspection Respiratory: normal respiratory effort, lungs clear to auscultation no respiratory distress Cardiovascular: RRR, no murmur, no edema Gastrointestinal (Abdomen): Inspection/Auscultation: abdomen normal to inspection and + hypoactive bowel sounds; abdomen not distended Percussion/Palpation: + abdomen tender (Diffuse) and abdomen soft; no guarding and abdomen not rigid Musculoskeletal: no cyanosis or clubbing, extremities motor strength 5/5 Skin: no rashes, warm and dry Neurologic: moves all extremities and awake Psychiatric: Orientation: alert, oriented to person and cooperative Results & Data Results & Data ([facility]) Vital Signs (Past 12 Hours) Vital Signs Temp Pulse Pulse Resp BP Pulse Ox 10/19/21 11:40 37.1 C 70 20 133/67 95 10/19/21 08:01 68 10/19/21 07:37 37.2 C 63 18 116/71 94 10/19/21 04:14 37.3 C 80 20 138/97 96 10/19/21 02:28 37.2 C 63 18 102/82 96 PG Care Time/CCT Total # of Minutes Spent Total Time Spent with Patient: Total time spent is greater than 50% in coordination of care (as documented) at patient's floor/unit and/or counseling patient: Coding Level of Care Code 04388 Subseq Hosp Care Lvl 3 Diagnoses Small bowel obstruction K56.609 HTN (hypertension) I10 GERD (gastroesophageal reflux disease) K21.9 Colonic dysmotility K59.9 Colon cancer C18.9 DVT prophylaxis Z29.9
--- NOTE | 2021-10-19 15:18 | XRay Report ---
XR chest 1V portable HISTORY: 80 years-old Female NG placement status post placement of an enteric tube COMPARISON: CT abdomen and pelvis 10/18/2021 TECHNIQUE: AP view of the chest FINDINGS: Distal tip enteric tube projects superiorly within the location of the gastric fundus. No pneumothora x, pleural effusion, airspace consolidation or overt pulmonary edema. Cardiomediastinal and hilar comfort houettes are within normal limits. Bones of the chest appear grossly intact. Air-filled loops of corazon l project over the abdominal left upper quadrant. IMPRESSION: Status post placement of an enteric tube, distal tip projected superiorly in the gastric fundus. ACT 112: Negative or not required by law. The above report was generated using voice recognition software. It may contain grammatical, syntax o r spelling errors. Electronically signed by: Michele Duncan M.D. 10/19/2021 3:17 PM
[2021-10-19] MEDS: MoRPHine SULFATE 2 MG/ML CARP IV PRN ×2 (16:11→21:43)
[2021-10-20] MEDS: LACTATED RINGER'S 1,000 ML IV SCH (00:54)
[2021-10-20] MEDS: PIPERACILLIN/TAZOBACTAM 3.375 GM in DEXTROSE 5% 100 ML IV SCH (05:44)
[2021-10-20] MEDS: MoRPHine SULFATE 2 MG/ML CARP IV PRN (05:45)
[2021-10-20 06:44] LABS: Basophils # (auto) 0.03 K/uL (0-0.2); Basophils % (auto) 0.4 %; Eosinophils # (auto) 0.04 K/uL (0-0.5); Eosinophils % (auto) 0.5 %; Hematocrit (blood only) 30.9 % (37-47); Hemoglobin 10.5 g/dL (12.0-16.0); Immature Granulocytes # (auto) 0.01 K/uL (0.00-0.02); Immature Granulocytes % (auto) 0.1 %; Lymphocytes # (auto) 1.76 K/uL (1.2-3.4); Lymphocytes % (auto) 22.8 %; Mean Corpuscular Hemoglobin 30.7 pg (25-34); Mean Corpuscular Volume 90.4 fL (80-100); Mean Platelet Volume 10.1 fL (7.4-10.4); Monocytes # (auto) 0.69 K/uL (0.11-0.59); Monocytes % (auto) 8.9 %; Neutrophils # (auto) 5.19 K/uL (1.4-6.5); Neutrophils % (auto) 67.3 %; Platelet Count 258 K/uL (130-400); RDW Coefficient of Variation 13.4 % (11.5-14.5); RDW Standard Deviation 43.9 fL (36.4-46.3); Red Blood Count 3.42 M/uL (4.2-5.4); White Blood Count 7.72 K/uL (4.8-10.8)
[2021-10-20 07:14] LABS: Albumin Globulin Ratio 1.3 (0.9-2); BUN Creatinine Ratio 13.8 (10-20); Bilirubin,Total 0.7 mg/dl (0.2-1.0); Calcium 7.7 mg/dl (8.5-10.1); Creatinine Clr Calc Pharmacy 67.7 ml/min; Est GFR (African American) 101.6 ml/min; Est GFR (Non-African American) 87.7 ml/min; Globulin 2.4 gm/dl (2.5-4.0); Magnesium 1.9 mg/dl (1.7-2.4); Potassium 3.4 mmol/L (3.5-5.1); Total Protein 5.4 gm/dl (6.0-8.3)
[2021-10-20] MEDS ORDERED: MAGNESIUM SULFATE / D5W 1 GM/100 ML BAG IV ONE (08:15)
--- NOTE | 2021-10-20 08:15 | Hospitalist Progress Note ---
Date of Service October 20, 2021 Assessment & Plan (1) Small bowel obstruction: Plan: Small bowel obstruction CT scan suggests secondary to adhesions from prior right hemicolectomy for colon cancer. Surgery was in April at [facility]. One recent admission for SBO at [facility]. - NPO, Gen Surgery is following - NG tube inserted on 10/19 patient with bowel movement 10/20 consideration by surgery of removing NG tube - Continue pain control and nausea control - IV fluids while NPO (2) Colon cancer: Plan: CT a/p on admission with pathologically enlarged and centrally necrotic appearing mesenteric lymph nodes in the lower abdomen, concerning for metastatic disease. Patient follows with oncology Dr. Miller at [facility]. I personally called the office left my personal cell phone number to have Dr. Miller return my call - Discussed with daughter - Per daughter, Dr. Miller is "very optimistic" about cancer and was not even recommending chemotherapy. The patient had a CT scan at [facility] last week during her admission for SBO, but daughter is not sure of last imaging from oncologist. - Elevated CEA 10/20/21 (3) HTN (hypertension): Plan: BP today is 135/65. - Hold lisinopril - Hydralazine IV PRN for high BP (4) GERD (gastroesophageal reflux disease): Plan: - Hold oral Protonix - Continue famotidine IV (5) Colonic dysmotility: Plan: - Holding metoclopramide due to bowel obstruction and n.p.o. status (6) DVT prophylaxis: Plan: Heparin 5,000 units SQ BID Admission and Anticipated Discharge Date Admission Date: October 18, 2021 Subjective pt is having some dry heaving this am, did have flatus and a bowel movement, surgery is considering removal of NGT on 10/20/21. Daughters at the bedside and updated Review of Systems Review of Systems: Mild distress and fatigue no headache, no visual changes no speech or swallowing issues no chest pain, pressure or palpitations no shortness of breath, cough or wheezes Dull bilateral lower quadrant abdominal pain, mild nausea with dry heaves but no vomiting, flatus and bowel movement on 10/20 no dysuria, hematuria or frequency no focal joint pain or swelling no back pain, CVA tenderness or radicular pain no bruising, bleeding or rashes no focal signs of weakness or numbness or altered sensation no complaints of anxiety or depression.. Physical Exam Physical Exam: The patient appeared well nourished and normally developed. She is in mild distress Vital signs as documented. Head exam is normocephalic atraumatic Neck is without JVD, thyromegaly, or carotid bruits. Lungs are clear to auscultation, no focal loss of breath sounds Cardiac exam, Rhythm is regular.. No murmurs, rubs or gallops. Abdominal exam reveals hypoactive bowel sounds, soft comfortable examination of the lower quadrants Extremities are nonedematous and both pedal pulses are present Neurologic exam is alert and oriented, no focal loss of strength or sensation Skin is without bruises or rashes Psychologically is without concerns for anxiety or depression.. Results & Data Results & Data ([facility]) Vital Signs (Past 12 Hours) Vital Signs Temp Pulse Pulse Resp BP Pulse Ox 10/20/21 08:11 97.7 F 61 18 152/79 H 97 10/20/21 03:00 97.9 F 62 20 163/77 H 97 10/20/21 00:00 63 10/19/21 22:00 98.1 F 63 20 155/81 H 95 PG Care Time/CCT Total # of Minutes Spent Total Time Spent with Patient: Total time spent is greater than 50% in coordination of care (as documented) at patient's floor/unit and/or counseling patient: Coding Level of Care Code 70754 Subseq Hosp Care Lvl 3 Diagnoses Small bowel obstruction K56.609 Colon cancer C18.9 HTN (hypertension) I10 GERD (gastroesophageal reflux disease) K21.9 Colonic dysmotility K59.9 DVT prophylaxis Z29.9
--- NOTE | 2021-10-20 08:36 | Surgery Progress Note ---
Date of Service October 20, 2021 Assessment & Plan (1) Small bowel obstruction: Plan: resolving sbo responding to non operative management will recheck this afternoon, likely remove ng will need low fiber diet as outpatient no surgery at this time outpatient follow up with oncology for concerning lymph nodes on CT Admission and Anticipated Discharge Date Admission Date: October 18, 2021 Subjective 80 y/o with h/o right hemicolectomy in Apr 2021, admitted for recurrent sbo. NG tube placed overnight. Passing gas, no bloating or soreness. Physical Exam Constitutional: WD/WN, vitals as above Gastrointestinal (Abdomen): normal bowel sounds, soft, nontender, no hepatosplenomegaly Inspection/Auscultation: + abdomen distended (mild distention, improved) and + abdominal surgical scar Results & Data ([facility]) Vital Signs (Past 12 Hours) Vital Signs Temp Pulse Pulse Resp BP Pulse Ox 10/20/21 08:11 36.5 C 61 18 152/79 H 97 10/20/21 03:00 36.6 C 62 20 163/77 H 97 10/20/21 00:00 63 10/19/21 22:00 36.7 C 63 20 155/81 H 95 PG Care Time/CCT Total # of Minutes Spent Total Time Spent with Patient: Total time spent is greater than 50% in coordination of care (as documented) at patient's floor/unit and/or counseling patient: Coding Level of Care Code 48361 Subseq Hosp Care Lvl 2 Diagnoses Small bowel obstruction K56.609
[2021-10-20] MEDS: FAMOTIDINE 20 MG in SYRINGE 3 ML IV SCH ×2 (09:34→19:43)
[2021-10-20] MEDS: HEPARIN SOD 5,000 UNIT/0.5 ML VIAL SQ SCH ×2 (09:35→19:45)
[2021-10-20] MEDS: POTASSIUM CHLORIDE 20 MEQ in LACTATED RINGER'S 1,000 ML IV SCH (11:28)
[2021-10-20] MEDS: ONDANSETRON INJ 2 MG/ML 2 ML VIAL IV PRN (12:00)
[2021-10-21] MEDS: POTASSIUM CHLORIDE 20 MEQ in LACTATED RINGER'S 1,000 ML IV SCH ×2 (00:37→14:22)
[2021-10-21 07:15] LABS: Basophils # (auto) 0.02 K/uL (0-0.2); Basophils % (auto) 0.3 %; Eosinophils % (auto) 1.3 %; Hematocrit (blood only) 30.2 % (37-47); Hemoglobin 10.3 g/dL (12.0-16.0); Immature Granulocytes # (auto) 0.02 K/uL (0.00-0.02); Immature Granulocytes % (auto) 0.3 %; Lymphocytes # (auto) 2.09 K/uL (1.2-3.4); Lymphocytes % (auto) 27.1 %; Mean Corpuscular Hgb Conc 34.1 g/dL (32-36); Mean Platelet Volume 9.8 fL (7.4-10.4); Monocytes # (auto) 0.86 K/uL (0.11-0.59); Monocytes % (auto) 11.2 %; Neutrophils # (auto) 4.61 K/uL (1.4-6.5); Neutrophils % (auto) 59.8 %; Platelet Count 253 K/uL (130-400); RDW Coefficient of Variation 13.4 % (11.5-14.5); RDW Standard Deviation 44.3 fL (36.4-46.3); Red Blood Count 3.32 M/uL (4.2-5.4)
[2021-10-21 07:39] LABS: Albumin Globulin Ratio 1.3 (0.9-2); Albumin Level 3.1 gm/dl (3.4-5.0); BUN Creatinine Ratio 13.1 (10-20); Bilirubin,Total 0.6 mg/dl (0.2-1.0); Calcium 7.7 mg/dl (8.5-10.1); Creatinine Clr Calc Pharmacy 64.3 ml/min; Est GFR (African American) 99.9 ml/min; Est GFR (Non-African American) 86.2 ml/min; Globulin 2.4 gm/dl (2.5-4.0); Potassium 3.8 mmol/L (3.5-5.1); Total Protein 5.5 gm/dl (6.0-8.3)
[2021-10-21] MEDS: FAMOTIDINE 20 MG in SYRINGE 3 ML IV SCH ×2 (08:04→21:17)
[2021-10-21] MEDS: HEPARIN SOD 5,000 UNIT/0.5 ML VIAL SQ SCH ×2 (08:04→21:17)
--- NOTE | 2021-10-21 10:12 | Surgery Progress Note ---
Date of Service October 21, 2021 Assessment & Plan (1) Small bowel obstruction: Plan: NGT was removed yesterday as patient feeling improvement in her symptoms and having + bowel function Today she is reporting return of belly pain, nausea, and lack of flatus/bm Patient's vital signs are stable and lab work is without leukocytosis and normal cr On exam abdomen is soft, non tender, non distended. She reports pain shooting into the sides not made worse with palpation Will obtain a KUB to further evaluate. If develops vomiting consider replacement of NGT She does have a question of gastroparesis on outpatient imaging, unclear if this is contributing to her symptoms Admission and Anticipated Discharge Date Admission Date: October 18, 2021 Supervising Physician Co-Signing Physician Notes Patient seen and examined, labs and imaging reviewed, agree with above. 80 y/o female with history of right hemicolectomy for colon cancer in April at [facility], recently admitted there with GI symptoms over past few weeks, now here with sbo. Had been passing flatus and had a bm with improved symptoms, NG removed yesterday and started on clears. Pain increased overnight and had nausea and vomiting today. on exam she is afvss, nad, aaox3. abd soft, mildly ttp, no guarding, no hernia. labs unremarkable. KUB with persistent obstruction. Patient declining ng tube, but willing if n/v return. Family would prefer transfer to [facility] to operative surgeon. Agree. Consider PPN/TPN as family states lost 40 lbs over past few weeks. Subjective Patient says she is feeling lousy. When prompted she said she is nauseated and gagging (no emesis). Tells me she is no longer passing flatus. Last BM yesterday. Only could tolerate a couple sips at bfast. Says her pain is sharp and shooting into her sides rating it a 6-7/10. She said she is tired of feeling like this and just wants surgery to "fix the blockage" Physical Exam Physical Exam: awake/alert, sitting up at the side of the bed Respiratory: normal respiratory effort Gastrointestinal (Abdomen): Inspection/Auscultation: abdomen not distended Percussion/Palpation: abdomen soft; abdomen nontender Results & Data ([facility]) Vital Signs (Past 12 Hours) Vital Signs Temp Pulse Pulse Resp BP Pulse Ox 10/21/21 07:59 36.9 C 59 L 16 171/75 H 92 10/21/21 07:35 63 10/21/21 04:00 36.8 C 62 18 149/81 H 99 10/21/21 00:00 57 L 10/20/21 23:00 36.8 C 60 18 170/64 H 96 PG Care Time/CCT Total # of Minutes Spent Total Time Spent with Patient: Total time spent is greater than 50% in coordination of care (as documented) at patient's floor/unit and/or counseling patient: Coding Level of Care Code 16539 Subseq Hosp Care Lvl 1 Diagnoses Small bowel obstruction K56.609
[2021-10-21] MEDS: ONDANSETRON INJ 2 MG/ML 2 ML VIAL IV PRN ×2 (10:34→21:29)
[2021-10-21] MEDS ORDERED: PROCHLORPERAZINE 5 MG in SYRINGE 4 ML IV ONE (10:56)
--- NOTE | 2021-10-21 13:54 | XRay Report ---
XR KUB/Abdomen 1 view CLINICAL HISTORY: eval bowel/gas pattern TECHNIQUE: 1 view of the abdomen was obtained. Comparison: Comparison is made to CT abdomen pelvis 10/18/2021 FINDINGS: Lung bases are unremarkable. Degenerative changes are seen in the visualized skeleton. Multiple gas d ilated loops of small bowel are seen measuring up to 36 mm in diameter. No significant stool burden i s seen. IMPRESSION: Multiple gas-distended loops of small bowel are compatible with small bowel obstruction. For detailed findings, please see CT abdomen pelvis performed same day. ACT 112: Negative or not required by law. Electronically signed by: Hieu Aggarwal M.D. 10/21/2021 1:52 PM
[2021-10-21] MEDS ORDERED: DEXTROSE 10% 1,000 ML IV PRN (15:29)
[2021-10-21] MEDS ORDERED: TPN/PPN CONSULT PHARMACY PRN (15:37)
--- NOTE | 2021-10-21 15:37 | Hospitalist Progress Note ---
Date of Service October 21, 2021 Assessment & Plan (1) Small bowel obstruction: Plan: Small bowel obstruction CT scan suggests secondary to adhesions from prior right hemicolectomy for colon cancer. Surgery was in April at [facility]. One recent admission for SBO at [facility]. - NPO, Gen Surgery is following, repeat KUB 10/21/21 shows persistent SBO changes - consider replacement of NGT, surgery will rule out - Continue pain control and nausea control - starting PPN (2) Colon cancer: Plan: CT a/p on admission with pathologically enlarged and centrally necrotic appearin g mesenteric lymph nodes in the lower abdomen, concerning for metastatic disease. Patient follows with oncology Dr. Miller at [facility]. I personally called the office left my personal cell phone number to have Dr. Miller return my call on 10/20/21 - Discussed with daughter - Per daughter, Dr. Miller is "very optimistic" about cancer and was not even recommending chemotherapy. The patient had a CT scan at [facility] last week during her admission for SBO, but daughter is not sure of last imaging from oncologist. - Elevated CEA 10/20/21 -I spoke to Chikis Montanez the general surgeon in [facility], and will be in touch is not opposed to have pt transferred to him if she does not improve (3) HTN (hypertension): Plan: BP stable while holding lisinopril - Hydralazine IV PRN for high BP (4) GERD (gastroesophageal reflux disease): Plan: - Hold oral Protonix - Continue famotidine IV (5) Colonic dysmotility: Plan: - Holding metoclopramide due to bowel obstruction and n.p.o. status (6) DVT prophylaxis: Plan: Heparin 5,000 units SQ BID Admission and Anticipated Discharge Date Admission Date: October 18, 2021 Subjective Patient states she feels poorly. Having dry heaves throughout the day. Repeat KUB confirms continued small bowel obstruction. Discussions with surgery here and also her previous surgeon Dr. Montanez will attempt that decompressive means with NG tube. Repeat KUB in the morning. We will start PPN and survey laboratories and clinical status Review of Systems Review of Systems: Mild distress and fatigue no headache, no visual changes no speech or swallowing issues no chest pain, pressure or palpitations no shortness of breath, cough or wheezes Dull bilateral lower quadrant abdominal pain, mild nausea with continued dry heaves but little vomitus, flatus and bowel movement on 10/20 none since no dysuria, hematuria or frequency no focal joint pain or swelling no back pain, CVA tenderness or radicular pain no bruising, bleeding or rashes no focal signs of weakness or numbness or altered sensation no complaints of anxiety or depression.. Physical Exam Physical Exam: The patient appeared well nourished and normally developed. She is in mild distress Vital signs as documented. Head exam is normocephalic atraumatic Neck is without JVD, thyromegaly, or carotid bruits. Lungs are clear to auscultation, no focal loss of breath sounds Cardiac exam, Rhythm is regular.. No murmurs, rubs or gallops. Abdominal exam reveals continued hypoactive bowel sounds, soft lower quadrant examined with mild pain Extremities are nonedematous and both pedal pulses are present Neurologic exam is alert and oriented, no focal loss of strength or sensation Skin is without bruises or rashes Psychologically is without concerns for anxiety or depression.. Results & Data Results & Data ([facility]) Vital Signs (Past 12 Hours) Vital Signs Temp Pulse Pulse Resp BP Pulse Ox 10/21/21 15:03 97.6 F 60 16 147/75 H 95 10/21/21 11:33 98.4 F 62 16 131/72 94 10/21/21 07:59 98.4 F 59 L 16 171/75 H 92 10/21/21 07:35 63 10/21/21 04:00 98.2 F 62 18 149/81 H 99 PG Care Time/CCT Total # of Minutes Spent Total Time Spent with Patient: Total time spent is greater than 50% in coordination of care (as documented) at patient's floor/unit and/or counseling patient: Coding Level of Care Code 42626 Subseq Hosp Care Lvl 2 Diagnoses Small bowel obstruction K56.609 Colon cancer C18.9 HTN (hypertension) I10 GERD (gastroesophageal reflux disease) K21.9 Colonic dysmotility K59.9 DVT prophylaxis Z29.9
[2021-10-21] MEDS ORDERED: LACTATED RINGER'S 1,000 ML IV SCH (18:15)
[2021-10-21] MEDS: MoRPHine SULFATE 2 MG/ML CARP IV PRN (21:29)
[2021-10-22] MEDS: POTASSIUM CHLORIDE 20 MEQ in LACTATED RINGER'S 1,000 ML IV SCH ×2 (02:22→16:20)
--- NOTE | 2021-10-22 07:47 | Surgery Progress Note ---
Date of Service October 22, 2021 Assessment & Plan (1) Small bowel obstruction: Plan: Patient reports feeling much better this AM, the best she has felt in awhile She denies abdominal complaints. She had a BM and is passing gas this morning Abdominal exam is benign Will take a look at KUB that has been ordered and may consider giving her a trial of clears Continue on PPN until patient is tolerating a diet If patient re develops vomiting will reconsider NGT and transfer to her surgeon Dr Montanez No plans for surgical intervention at this time [facility] surgery covering for the weekend Admission and Anticipated Discharge Date Admission Date: October 18, 2021 Supervising Physician Co-Signing Physician Notes Patient seen and examined, labs and imaging reviewed, agree with above. 80 y/o female with history of right hemicolectomy for colon cancer in April at [facility], recently admitted there with GI symptoms over past few weeks, now here with sbo. Yesterday had increased pain and nausea after NG tube removal, but today feeling much better. + flatus and loose bm. on exam she is afvss, nad, aaox3. abd soft, mildly ttp, no guarding, no hernia. labs unremarkable. KUB with persistent obstruction, though slightly improved. start sips, chips, and small amount of clears. Family and patient would prefer transfer to [facility] to operative surgeon if surgery necessary, Agree. PPN ordered slowly advance diet, outpatient follow up with operative surgeon Dr. Dawson covering over weekend Subjective Patient says she is feeling great this AM. Got up and shower and moved around and is feeling well. She had a BM this AM and is passing gas. Denies further belly pain or nausea at this time. Physical Exam Physical Exam: awake/alert, in good spirits Respiratory: normal respiratory effort Gastrointestinal (Abdomen): Inspection/Auscultation: abdomen not distended Percussion/Palpation: abdomen soft; abdomen nontender Results & Data ([facility]) Vital Signs (Past 12 Hours) Vital Signs Temp Pulse Pulse Resp BP Pulse Ox 10/22/21 03:19 36.9 C 55 L 18 149/68 H 93 10/21/21 22:36 36.9 C 60 18 138/82 97 10/21/21 22:16 60 10/21/21 19:59 37 C 57 L 20 129/73 94 PG Care Time/CCT Total # of Minutes Spent Total Time Spent with Patient: Total time spent is greater than 50% in coordination of care (as documented) at patient's floor/unit and/or counseling patient: Coding Level of Care Code 37316 Subseq Hosp Care Lvl 1 Diagnoses Small bowel obstruction K56.609
[2021-10-22 07:53] LABS: BUN Creatinine Ratio 17.5 (10-20); Calcium 7.9 mg/dl (8.5-10.1); Creatinine Clr Calc Pharmacy 68.9 ml/min; Est GFR (African American) 102.2 ml/min; Est GFR (Non-African American) 88.2 ml/min; Magnesium 2.1 mg/dl (1.7-2.4); Phosphorus 2.2 mg/dl (2.5-4.9); Potassium 3.9 mmol/L (3.5-5.1)
[2021-10-22] MEDS: HEPARIN SOD 5,000 UNIT/0.5 ML VIAL SQ SCH ×2 (09:25→20:22)
[2021-10-22] MEDS: FAMOTIDINE 20 MG in SYRINGE 3 ML IV SCH ×2 (09:26→20:22)
--- NOTE | 2021-10-22 09:30 | XRay Report ---
XR KUB/Abdomen 1 view CLINICAL HISTORY: progression of SBO TECHNIQUE: 1 view of the abdomen was obtained. Comparison: Comparison is made to abdomen radiograph 10/21/2021 FINDINGS: Lung bases are unremarkable. Degenerative changes are seen in the visualized skeleton. Multiple gas-d istended loops of small bowel are seen measuring up to 33 mm, possibly somewhat improved from prior e xam. A moderate amount of stool is noted within the large bowel. IMPRESSION: Multiple gas-distended loops of small bowel are seen, minimally improved from prior exam, compatible with small bowel obstruction. ACT 112: Negative or not required by law. Electronically signed by: Hieu Aggarwal M.D. 10/22/2021 9:29 AM
[2021-10-22] MEDS ORDERED: SODIUM PHOSPHATE 15 MMOL in DEXTROSE 5% 250 ML IV ONE (10:45)
--- NOTE | 2021-10-22 12:32 | Pharmacy Report ---
Pharmacy PN Initial Consult - Date of Service October 22, 2021 - Scope Pharmacy has been consulted to manage parenteral nutrition orders and order appropriate labs. As part of the Nutrition Support Team guidelines, pharmacy will work in conjunction with dietary when determining the patients caloric needs. - Subjective The patient is a 80 year old F admitted on 10/18/21 21:59 for SBO. Patient is to receive parenteral nutrition for small bowl obstruction, prolonged NPO. - Objective Height: 5 ft 2 in Weight: 61.2 kg Diet: NPO Intake & Output (Last 24Hrs): Intake & Output 10/20/21 10/21/21 10/22/21 10/23/21 06:59 06:59 06:59 06:59 Intake Total 2345 / 2345 2265.667 / 2265.667 2029 Balance 2345 / 2345 2265.667 / 2265.667 2029 Weight 61.1 kg 61.2 kg 61.2 kg Laboratory Data (Last 24 Hrs):: 10/22/21 07:01 Sodium 131 L Potassium 3.9 Chloride 98 Carbon Dioxide 24 BUN 10 Creatinine 0.57 L Glucose 75 Calcium 7.9 L Phosphorus 2.2 L Magnesium 2.1 Nutrition Assessment:: Please refer to the Notes section of the EMR for the most recent hazardous materials handler note. - Assessment Farrah is a 80 yo F with history of right hemicolectomy for colon cancer. She was admitted on 10/18/21 for small bowl obstruction and has been NPO since then. Plan is to start PPN for short duration until patient tolerating diet advancement. * Initiate PPN at 80 mL/hr to provide 82 g AA, 96 g CHO, 50 g lipids. This will provide 1152.8 kcals per day. * Hypophosphatemia. Will replace phosphate prior to starting PPN. * Thiamine added to PPN. Monitor for signs of refeeding. - Plan For day 1 of PN administration, the following will be ordered: Macronutrients Amino acids 82 grams/day Dextrose 96 grams/day Lipids 50 grams/day Micronutrients Sodium phosphate 24 MMol Sodium chloride 50 mEq Potassium acetate 50 mEq Magnesium sulfate 4.06 mEq Calcium gluconate 4.65 mEq Multivitamins 10 mL Trace Elements 10 mL Additional additives: thiamine 100 mg Total volume 1996 mL to be infused over 24 hrs will provide 1152.8 kcal/day Final osmolarity 783 mOsm/L (maximum for PPN is 900 mOsm/L) Labs to be ordered per PN order protocol Pharmacy will follow and adjust parenteral nutrition orders on a daily basis. Thank you.
[2021-10-22] MEDS: ONDANSETRON INJ 2 MG/ML 2 ML VIAL IV PRN ×2 (13:10→23:24)
[2021-10-22] MEDS: MoRPHine SULFATE 2 MG/ML CARP IV PRN (13:24)
--- NOTE | 2021-10-22 13:55 | Hospitalist Progress Note ---
Date of Service October 22, 2021 Assessment & Plan (1) Small bowel obstruction: Plan: Small bowel obstruction CT scan suggests secondary to adhesions from prior right hemicolectomy for colon cancer. Surgery was in April at [facility]. One recent admission for SBO at [facility]. - NPO, Gen Surgery is following, repeat KUB 10/121 shows persistent SBO changes but clinically did have bowel movement and feels much better - consider replacement of NGT if vominting recurrs, if sbo progresses transfer to [facility], DR Montanez [phone] - Continue pain control and nausea control - starting PPN (2) Colon cancer: Plan: CT a/p on admission with pathologically enlarged and centrally necrotic appearing mesenteric lymph nodes in the lower abdomen, concerning for metastatic disease. Patient follows with oncology Dr. Miller at [facility]. I personally called the office left my personal cell phone number to have Dr. Miller return my call on 10/20/21 - Discussed with daughter - Per daughter, Dr. Miller is "very optimistic" about cancer and was not even recommending chemotherapy. The patient had a CT scan at [facility] last week during her admission for SBO, but daughter is not sure of last imaging from oncologist. - Elevated CEA 10/20/21 -I spoke to Chikis Montanez the general surgeon in [facility], and will be in touch is not opposed to have pt transferred to him if she does not improve (3) HTN (hypertension): Plan: BP stable while holding lisinopril - Hydralazine IV PRN for high BP (4) GERD (gastroesophageal reflux disease): Plan: - Hold oral Protonix - Continue famotidine IV (5) Colonic dysmotility: Plan: - Holding metoclopramide due to bowel obstruction and n.p.o. status but can eat chips and sips (6) DVT prophylaxis: Plan: Heparin 5,000 units SQ BID Admission and Anticipated Discharge Date Admission Date: October 18, 2021 Subjective pt is feeling much better today, did have bowel movement this am, KUB shows sbo, but clinically is improved, will still use ppn and follow, order PT/OT Review of Systems Review of Systems: Mild distress and fatigue no headache, no visual changes no speech or swallowing issues no chest pain, pressure or palpitations no shortness of breath, cough or wheezes Dull bilateral lower quadrant abdominal pain, flatus and bowel movement on 10/22 no dysuria, hematuria or frequency no focal joint pain or swelling no back pain, CVA tenderness or radicular pain no bruising, bleeding or rashes no focal signs of weakness or numbness or altered sensation no complaints of anxiety or depression. Physical Exam Physical Exam: The patient appeared well nourished and normally developed. She is in mild distress Vital signs as documented. Head exam is normocephalic atraumatic Neck is without JVD, thyromegaly, or carotid bruits. Lungs are clear to auscultation, no focal loss of breath sounds Cardiac exam, Rhythm is regular.. No murmurs, rubs or gallops. Abdominal exam reveals continued hypoactive bowel sounds, soft lower quadrant examined with mild pain Extremities are nonedematous and both pedal pulses are present Neurologic exam is alert and oriented, no focal loss of strength or sensation Skin is without bruises or rashes Psychologically is without concerns for anxiety or depression.. Results & Data Results & Data ([facility]) Vital Signs (Past 12 Hours) Vital Signs Temp Pulse Pulse Resp BP Pulse Ox 10/22/21 11:53 98.4 F 63 18 162/78 H 96 10/22/21 07:43 97.7 F 54 L 18 123/73 96 10/22/21 07:30 61 10/22/21 03:19 98.4 F 55 L 18 149/68 H 93 PG Care Time/CCT Total # of Minutes Spent Total Time Spent with Patient: Total time spent is greater than 50% in coordination of care (as documented) at patient's floor/unit and/or counseling patient: Coding Level of Care Code 17709 Subseq Hosp Care Lvl 2 Diagnoses Small bowel obstruction K56.609 Colon cancer C18.9 HTN (hypertension) I10 GERD (gastroesophageal reflux disease) K21.9 Colonic dysmotility K59.9 DVT prophylaxis Z29.9
[2021-10-22] MEDS ORDERED: PERIPHERAL TPN IV SCH (16:00)
[2021-10-22] MEDS ORDERED: AMINO ACIDS 4.25% IV SCH (16:00)
[2021-10-22] MEDS ORDERED: D5W IV SCH (16:00)
[2021-10-22] MEDS ORDERED: CLINOLIPID 20% IV FAT EMULSION 250 ML IV SCH (16:00)
[2021-10-22] MEDS ORDERED: STOP CLINOLIPID SCH (22:00)
[2021-10-23 06:56] LABS: BUN Creatinine Ratio 25.5 (10-20); Calcium 7.5 mg/dl (8.5-10.1); Creatinine Clr Calc Pharmacy 76.8 ml/min; Est GFR (African American) 108.9 ml/min; Est GFR (Non-African American) 93.9 ml/min; Magnesium 1.9 mg/dl (1.7-2.4); Phosphorus 3.1 mg/dl (2.5-4.9); Potassium 3.3 mmol/L (3.5-5.1)
[2021-10-23] MEDS: HEPARIN SOD 5,000 UNIT/0.5 ML VIAL SQ SCH ×2 (08:35→20:23)
[2021-10-23] MEDS: FAMOTIDINE 20 MG in SYRINGE 3 ML IV SCH ×2 (08:35→20:23)
--- NOTE | 2021-10-23 09:51 | XRay Report ---
XR KUB/Abdomen 1 view CLINICAL HISTORY: sbo surveillance TECHNIQUE: 1 view of the abdomen was obtained. Comparison: Comparison is made to abdomen radiographs 10/22/2021 FINDINGS: Lung bases are unremarkable. Multiple gas-distended loops of small bowel are seen, some decrease in n umber from prior exam. Degenerative changes are seen in the lumbar spine. No significant stool burden is seen. IMPRESSION: Redemonstration of mild small bowel obstruction. ACT 112: Negative or not required by law. Electronically signed by: Hieu Aggarwal M.D. 10/23/2021 9:49 AM
[2021-10-23] MEDS: POTASSIUM CHLORIDE / WTR 10 MEQ/100 ML PLCT IV SCH ×3 (10:14→14:02)
[2021-10-23 11:58] LABS: Adenovirus F 40/41 PCR Not Detected (NotDetected); Astrovirus PCR Not Detected (NotDetected); Campylobacter PCR Not Detected (NotDetected); Clostridium diff Toxin A/B PCR Not Detected (NotDetected); Cryptosporidium PCR Not Detected (NotDetected); Cyclospora cayetanensis PCR Not Detected (NotDetected); Entamoeba histolytica PCR Not Detected (NotDetected); Enteroaggregative E.coli(EAEC) Not Detected (NotDetected); Enteropathogenic E.coli (EPEC) Not Detected (NotDetected); Enterotoxigenic E.coli (ETEC) Not Detected (NotDetected); Giardia lamblia PCR Not Detected (NotDetected); Norovirus GI/GII PCR Not Detected (NotDetected); Plesiomonas shigelloides PCR Not Detected (NotDetected); Rotavirus A PCR Not Detected (NotDetected); Salmonella PCR Not Detected (NotDetected); Sapovirus PCR Not Detected (NotDetected); Shiga-like Toxin E.coli (STEC) Not Detected (NotDetected); Shigella/Enteroinvasive E.coli Not Detected (NotDetected); Vibrio cholerae PCR Not Detected (NotDetected); Vibrio species PCR Not Detected (NotDetected); Yersinia enterocolitica PCR Not Detected (NotDetected)
--- NOTE | 2021-10-23 12:10 | Surgery Progress Note ---
Date of Service October 23, 2021 Assessment & Plan (1) Small bowel obstruction: Plan: Patient reports feeling much better this AM, the best she has felt in awhile She denies abdominal complaints. She had multiple bowel movements overnight Abdominal exam is benign Advance diet to clears, continue PPN If patient re develops vomiting will reconsider NGT and transfer to her surgeon Dr Montanez No plans for surgical intervention at this time Admission and Anticipated Discharge Date Admission Date: October 18, 2021 Subjective She has had multiple bowel movements overnight, with significant flatus. She denies nausea or vomiting currently. Physical Exam Respiratory: normal respiratory effort Gastrointestinal (Abdomen): Inspection/Auscultation: abdomen not distended Percussion/Palpation: abdomen soft; abdomen nontender Results & Data ([facility]) Vital Signs (Past 12 Hours) Vital Signs Temp Pulse Pulse Resp BP Pulse Ox 10/23/21 11:45 36.6 C 49 L 18 153/79 H 97 10/23/21 07:54 59 L 10/23/21 07:21 36.8 C 59 L 18 150/73 H 94 10/23/21 04:00 36.9 C 67 18 121/73 98 10/23/21 00:16 67
--- NOTE | 2021-10-23 12:42 | Hospitalist Progress Note ---
Date of Service October 23, 2021 Assessment & Plan (1) Small bowel obstruction: Plan: Small bowel obstruction CT scan suggests secondary to adhesions from prior right hemicolectomy for colon cancer. Surgery was in April at [facility]. One recent admission for SBO at [facility]. - try clear liquid diet 10/23/21, Gen Surgery is following, repeat KUB 10/23/21 shows persistent SBO changes but some improvement. clinically did have bowel movements last 2 days and feels much better - consider replacement of NGT if vomiting recurs, if sbo progresses transfer to [facility], DR Montanez [phone] - Continue pain control and nausea control (2) Colon cancer: Plan: CT a/p on admission with pathologically enlarged and centrally necrotic appearing mesenteric lymph nodes in the lower abdomen, concerning for metastatic disease. Patient follows with oncology Dr. Miller at [facility]. I personally called the office left my personal cell phone number to have Dr. Miller return my call on 10/20/21 - Discussed with daughter - Per daughter, Dr. Miller is "very optimistic" about cancer and was not even recommending chemotherapy. The patient had a CT scan at [facility] last week during her admission for SBO, but daughter is not sure of last imaging from oncologist. - Elevated CEA 10/20/21 -I spoke to Chikis Montanez the general surgeon in [facility], he is not opposed to have pt transferred to him if she does not improve (3) HTN (hypertension): Plan: BP stable while holding lisinopril - Hydralazine IV PRN for high BP (4) GERD (gastroesophageal reflux disease): Plan: - Hold oral Protonix - Continue famotidine IV (5) Colonic dysmotility: Plan: - Holding metoclopramide due to bowel obstruction and n.p.o. status but can eat chips and sips (6) DVT prophylaxis: Plan: Heparin 5,000 units SQ BID Admission and Anticipated Discharge Date Admission Date: October 18, 2021 Subjective She has had multiple bowel movements overnight, with significant flatus. She denies nausea or vomiting currently. feels much better wants to advance diet Review of Systems Review of Systems: Mild distress and fatigue no headache, no visual changes no speech or swallowing issues no chest pain, pressure or palpitations no shortness of breath, cough or wheezes resolved abdominal pain, nausea or vomiting, is having loose bowel movements no dysuria, hematuria or frequency no focal joint pain or swelling no back pain, CVA tenderness or radicular pain no bruising, bleeding or rashes no focal signs of weakness or numbness or altered sensation no complaints of anxiety or depression.. Physical Exam Physical Exam: The patient appeared well nourished and normally developed. Vital signs as documented. Head exam is normocephalic atraumatic Neck is without JVD, thyromegaly, or carotid bruits. Lungs are clear to auscultation, no focal loss of breath sounds Cardiac exam, Rhythm is regular.. No murmurs, rubs or gallops. Abdominal exam reveals normal bowel sounds, soft non tender, no masses Extremities are nonedematous and both pedal pulses are present Neurologic exam is alert and oriented, no focal loss of strength or sensation Skin is without bruises or rashes Psychologically is without concerns for anxiety or depression.. Results & Data Results & Data ([facility]) Vital Signs (Past 12 Hours) Vital Signs Temp Pulse Pulse Resp BP Pulse Ox 10/23/21 11:45 97.9 F 49 L 18 153/79 H 97 10/23/21 07:54 59 L 10/23/21 07:21 98.2 F 59 L 18 150/73 H 94 10/23/21 04:00 98.4 F 67 18 121/73 98 PG Care Time/CCT Total # of Minutes Spent Total Time Spent with Patient: Total time spent is greater than 50% in coordination of care (as documented) at patient's floor/unit and/or counseling patient: Coding Level of Care Code 93582 Subseq Hosp Care Lvl 2 Diagnoses Small bowel obstruction K56.609 Colon cancer C18.9 HTN (hypertension) I10 GERD (gastroesophageal reflux disease) K21.9 Colonic dysmotility K59.9 DVT prophylaxis Z29.9
[2021-10-24 07:00] LABS: Est GFR (African American) 106.7 ml/min; Est GFR (Non-African American) 92.1 ml/min; Magnesium 1.9 mg/dl (1.7-2.4); Phosphorus 2.8 mg/dl (2.5-4.9); Potassium 3.6 mmol/L (3.5-5.1)
[2021-10-24] MEDS: FAMOTIDINE 20 MG in SYRINGE 3 ML IV SCH (09:28)
[2021-10-24] MEDS: HEPARIN SOD 5,000 UNIT/0.5 ML VIAL SQ SCH (09:28)
--- NOTE | 2021-10-24 10:48 | Surgery Progress Note ---
Date of Service October 24, 2021 Assessment & Plan (1) Small bowel obstruction: Plan: Patient continues to feel significant improvement. Continues to have bowel movements. Advance diet as tolerated. If tolerating diet, discharge to home okay from surgical standpoint Admission and Anticipated Discharge Date Admission Date: October 18, 2021 Subjective Doing well today. Tolerating clears. Has continued to have bowel movements and flatus. No nausea or vomiting. Physical Exam Respiratory: normal respiratory effort Gastrointestinal (Abdomen): Inspection/Auscultation: abdomen not distended Percussion/Palpation: abdomen soft; abdomen nontender Results & Data ([facility]) Vital Signs (Past 12 Hours) Vital Signs Temp Pulse Pulse Resp BP Pulse Ox 10/24/21 06:56 36.7 C 56 L 18 136/71 99 10/24/21 06:31 57 L 10/24/21 04:23 36.7 C 60 18 121/72 99 10/24/21 02:25 60 10/23/21 23:07 36.8 C 57 L 18 134/69 94
--- NOTE | 2021-10-24 15:11 | Hospitalist Progress Note ---
Date of Service October 24, 2021 Assessment & Plan (1) Small bowel obstruction: Plan: Small bowel obstruction CT scan suggests secondary to adhesions from prior right hemicolectomy for colon cancer. Surgery was in April at [facility]. One recent admission for SBO at [facility]. - tolerated clear liquid diet 10/23/21, Gen Surgery is following, repeat KUB 10/23/21 shows persistent SBO changes but some improvement. clinically did have bowel movements last 3 days and feels much better, if sbo progresses transfer to [facility], DR Montanez [phone] - Continue pain control and nausea control with liquid stools gi pcr negative for infection (2) Colon cancer: Plan: CT a/p on admission with pathologically enlarged and centrally necrotic appearing mesenteric lymph nodes in the lower abdomen, concerning for metastatic disease. Patient follows with oncology Dr. Miller at [facility]. I personally called the office left my personal cell phone number to have Dr. Miller return my call on 10/20/21 - Discussed with daughter - Per daughter, Dr. Miller is "very optimistic" about cancer and was not even recommending chemotherapy. The patient had a CT scan at [facility] last week during her admission for SBO, but daughter is not sure of last imaging from oncologist. - Elevated CEA 10/20/21 -I spoke to Chikis Montanez the general surgeon in [facility], he is not opposed to have pt transferred to him if she does not improve (3) HTN (hypertension): Plan: resume lisinopril at dc (4) GERD (gastroesophageal reflux disease): Plan: - resume protonix at discharge (5) Colonic dysmotility: Plan: - metoclopramide (6) DVT prophylaxis: Plan: Heparin 5,000 units SQ BID Admission and Anticipated Discharge Date Admission Date: October 18, 2021 Subjective Doing well today. Tolerating clears, surgery suggests advancing diet, Has continued to have bowel movements and flatus. No nausea or vomiting. Pt wants to go home, daughter wants her to stay, will see how lunch settles Review of Systems Review of Systems: Mild distress and fatigue no headache, no visual changes no speech or swallowing issues no chest pain, pressure or palpitations no shortness of breath, cough or wheezes resolved abdominal pain, nausea or vomiting, is having bowel movements no dysuria, hematuria or frequency no focal joint pain or swelling no back pain, CVA tenderness or radicular pain no bruising, bleeding or rashes no focal signs of weakness or numbness or altered sensation no complaints of anxiety or depression.. Physical Exam Physical Exam: The patient appeared well nourished and normally developed. Vital signs as documented. Head exam is normocephalic atraumatic Neck is without JVD, thyromegaly, or carotid bruits. Lungs are clear to auscultation, no focal loss of breath sounds Cardiac exam, Rhythm is regular.. No murmurs, rubs or gallops. Abdominal exam reveals normal bowel sounds, soft non tender, no masses Extremities are nonedematous and both pedal pulses are present Neurologic exam is alert and oriented, no focal loss of strength or sensation Skin is without bruises or rashes Psychologically is without concerns for anxiety or depression.. Results & Data Results & Data ([facility]) Vital Signs (Past 12 Hours) Vital Signs Temp Pulse Pulse Resp BP Pulse Ox 10/24/21 11:28 97.7 F 62 18 125/75 97 10/24/21 06:56 98.1 F 56 L 18 136/71 99 10/24/21 06:31 57 L 10/24/21 04:23 98.1 F 60 18 121/72 99 PG Care Time/CCT Total # of Minutes Spent Total Time Spent with Patient: Total time spent is greater than 50% in coordination of care (as documented) at patient's floor/unit and/or counseling patient: Coding Level of Care Code 34506 Subseq Hosp Care Lvl 2 Diagnoses Small bowel obstruction K56.609 Colon cancer C18.9 HTN (hypertension) I10 GERD (gastroesophageal reflux disease) K21.9 Colonic dysmotility K59.9 DVT prophylaxis Z29.9
--- NOTE | 2021-10-24 15:12 | Discharge Summary ---
Date of Service October 24, 2021 Principal Diagnosis Small bowel obstruction history of colonic resection for malignancy Discharge Exam The patient appeared stable Vital signs as documented. Lungs are clear to auscultation and appear unlabored Cardiac exam, Rhythm is regular.. No murmurs, rubs or gallops. Abdominal exam reveals normal bowel sounds, soft non tender, no masses Extremities are nonedematous and both pedal pulses are normal. Neurologic exam is alert and oriented, no focal loss of strength or sensation Skin is without bruises or rashes Psychologically is without concerns for anxiety or depression. Discharge Data Allergies Allergy/AdvReac Type Severity Reaction Status Date / Time No Known Allergies Allergy Unverified 10/18/21 22:13 Consultations 10/18/21 21:22 ED Decision to Admit Stat 10/19/21 10:48 Consult General Surgery Routine Ordered Studies 10/18/21 19:04 CT abd pelvis IV con only Stat Hospital Course (1) Small bowel obstruction: Small bowel obstruction CT scan suggests secondary to adhesions from prior right hemicolectomy for colon cancer. [facility]BO at [facility]. - tolerated clear liquid diet 10/23/21, Gen Surgery is following, repeat KUB 10/23/21 shows persistent SBO changes but some improvement. clinically did have bowel movements last 3 days and feels much better, if sbo progresses transfer to [facility], DR Montanez [phone] - Continue pain control and nausea control with liquid stools gi pcr negative for infection (2) Colon cancer: CT a/p on admission with pathologically enlarged and centrally necrotic appearing mesenteric lymph nodes in the lower abdomen, concerning for metastatic disease. [facility] I personally called the office left my personal cell phone number to have Dr. Miller return my call on 10/20/21 - Discussed with daughter - Per daughter, Dr. Miller is "very optimistic" about cancer and was not even recommending chemotherapy. The patient had a CT scan at [facility] last week during her admission for SBO, but daughter is not sure of last imaging from oncologist. - Elevated CEA 10/20/21 -I spoke to Chikis Montanez the general surgeon in [facility], he is not opposed to have pt transferred to him if she does not improve (3) HTN (hypertension): resume lisinopril at dc (4) GERD (gastroesophageal reflux disease): - resume protonix at discharge (5) Colonic dysmotility: - metoclopramide (6) DVT prophylaxis: Heparin 5,000 units SQ BID Total Time Total Time Spent Total Time Spent (In Minutes): It required greater than 30 minutes to prepare this patient for discharge Discharge Plan Discharge Items Patient Disposition: Home - Self-Care Reason For Visit: SBO Discharge Diagnosis: small bowel obstruction, resolving Activity: Per Instructions section Activity Comment: slowing increase intake Non-emergency contact: Primary Care Provider and Surgeon Call non-emergency contact if: your symptoms worsen and you have a fever Follow-up/Referrals: Jerilyn Arroyo CRNP [Primary Care Provider] - Diet: Low Fiber Addtl Attending Provider Instructions: A bowel blockage, also called an intestinal obstruction, can prevent gas, fluids, or solids from moving through the intestines normally. It can cause constipation and, rarely, diarrhea. You may have pain, nausea, vomiting, and cramping. Most of the time, complete blockages require a stay in the hospital and possibly surgery. But if your bowel is only partly blocked, your doctor may tell you to wait until it clears on its own and you are able to pass gas and stool. If so, there are things you can do at home to help make you feel better. How can you care for yourself at home? These may include eating a liquid or low fiber diet to avoid complete blockage. * Take your medicines exactly as prescribed. Call your doctor or nurse call line if you think you are having a problem with your medicine. * Put a heating pad set on low on your belly to relieve mild cramps and pain. * To prevent another blockage * Try to eat smaller amounts of food more often. For example, have 5 or 6 small meals throughout the day instead of 2 or 3 large meals. * Chew your food very well. Try to chew each bite about 20 times or until it is liquid. * Avoid high-fibre foods and raw vegetables and fruits with skins, husks, strings, or seeds. These can form a ball of undigested material that can cause a blockage if a part of your bowel is scarred or narrowed. * Check with your doctor before you eat whole grain foods or use a fibre supplement such as Benefibre or Metamucil. * To help you have regular bowel movements, eat at regular times, do not strain during a bowel movement, and drink plenty of water * Drink high-calorie liquid formulas if your doctor says to. Severe symptoms may make it hard for your body to take in vitamins and minerals. * Get regular exercise. It helps you digest your food better. Get at least 2 hours of moderate to vigorous physical activity a week. Walking is a good choice. * When should you call for help? Call your doctor or nurse call line nowor seek immediate medical care if: * You have a fever. * You are vomiting. * You have new or worse belly pain. * You cannot pass stools or gas. Follow-up care is a washburn part of your treatment and safety.Be sure to make and go to all appointments, and call your doctor or nurse call line if you are having problems. It's also a good idea to know your test results and keep a list of the medicines you take. Pending Studies at Discharge: No Stand-Alone Forms: My [facility], Smoking Cessation Medications and DC Order Prescriptions: Continued metoclopramide HCl 5 mg Tablet 5 mg PO AC RF: 0 pantoprazole 40 mg tablet,delayed release (DR/EC) 40 mg PO QAM RF: 0 lisinopril 10 mg tablet 10 mg PO QAM RF: 0 ondansetron 4 mg tablet,disintegrating 4 mg PO Q8 PRN (Reason: Nausea And Vomiting) Qty: 20 RF: 0 Discontinued sucralfate 1 gram tablet 1 g PO QID RF: 0 potassium chloride 20 mEq tablet,ER particles/crystals 20 meq PO TIDM RF: 0 magnesium oxide 400 mg (241.3 mg magnesium) tablet 400 mg PO Q12 RF: 0 amoxicillin-pot clavulanate 875-125 mg tablet 1 tab PO AMHS RF: 0 cholestyramine (with sugar) 4 gram powder in packet 1 ea PO AMHS RF: 0 Discharge Orders: Discharge Order (Routine); Ordered 10/24/21 Ordered By: Baljinder Silver Admission Data Admit Date/Time: 10/18/21 21:59 Attending Provider: Baljinder Silver Admit Provider: Aryan Guillory Primary Care Provider: Jerilyn Arroyo Other Providers: César Dawson ; Jose Pryor Coding Level of Care Code D/C DAY MANAGEMENT >30 MINS Diagnoses Small bowel obstruction K56.609 Colon cancer C18.9 HTN (hypertension) I10 GERD (gastroesophageal reflux disease) K21.9 Colonic dysmotility K59.9 DVT prophylaxis Z29.9
== END 2021-10-24 18:19 | disposition home or self-care (01) | DRG 389 ==
LOC: ED 15:46 → SUATTDRO 21:59 → 2N 21:59